=== PATIENT | male | born 1990 | race Caucasian/White ===

== ENCOUNTER 2021-09-14 17:55 | Emergency (ER) | payer BC, SELFPAY ==
--- NOTE | 2021-09-14 17:58 | ED.EAR ---
HPI - Ear Problem General Chief complaint: Ear Stated complaint: ear pain Time Seen by Provider: 09/14/21 17:58 Source: patient and RN notes reviewed History of Present Illness HPI Narrative: Patient is a 31-year-old male who presents the urgent care with complaints of bilateral ear pain that started today. Patient states that he has had post viral symptoms of a recent diagnosis of RSV. Patient states has been taking Mucinex for the mucus production. States that he used a sinus cleanse last night and believes that what started his ear pain. Patient states he is also obtained [id number] earache drops today and has been using them to the bilateral ears. Patient denies of any recent fevers. Denies of any shortness of breath or wheezing. No other acute complaints. No acute distress noted. Patient aware of the plan of care. Some parts of this dictation were generated by voice recognition software and may contain typographical and/or grammatical inaccuracies. Related Data Home Medications Medication Instructions Recorded Confirmed escitalopram oxalate 10 mg PO DAILY 09/14/21 09/14/21 methylphenidate HCl 27 mg PO DAILY 09/14/21 09/14/21 Allergies Allergy/AdvReac Type Severity Reaction Status Date / Time atomoxetine Allergy Unknown Other Verified 09/14/21 18:03 Review of Systems Review of Systems: CONSTITUTIONAL: Denies fever, chills, or sweats. EYES: Denies visual changes, redness, or discharge. ENT: Denies rhinorrhea, congestion, sore throat. Reports of bilateral otalgia CARDIOVASCULAR: Denies chest pain, palpitations, or edema. RESPIRATORY: Reports a productive cough without dyspnea GASTROINTESTINAL: Denies abdominal pain, nausea, vomiting, or diarrhea. GENITOURINARY: Denies dysuria or hematuria. SKIN: Denies rash or itching. MUSCULOSKELETAL: Denies back pain, joint pain, or myalgia. NEUROLOGIC: Denies headache, numbness, or weakness. All other systems reviewed are negative, except as documented in HPI. [facility] Family History Family History (System 04/28/20 @ 14:58 by Ellis Meza) Sibling Family history of thyroid disease Grandparent Family history of cardiovascular disease Cerebrovascular accident Family history of Alzheimer's disease Other Diabetes mellitus Family history of malignant neoplasm Social History Social History (System 04/28/20 @ 14:58 by Ellis Meza) Smoking status: Former smoker Smoking end date: 11/21/08 Alcohol intake: current Comments At the time of my signature, I reviewed and agree with the nursing past medical, surgical, social, and family history. There is no relevant family history pertinent to the patient complaint. Exam Narrative: GENERAL: This is a well-nourished, well-developed patient, in no apparent distress. HEAD: normocephalic, atraumatic. EYES: PERRL. Sclera clear/white. Vision is grossly intact. EARS: External ears normal, auditory canals clear and without drainage, moderate fluid noted behind bilateral TMs without otitis. TMs normal without perforation. Hearing grossly intact. NOSE: External nose normal with no obvious nasal discharge, nares without redness, no rhinorrhea. THROAT: Mucous membranes moist, posterior pharynx clear. Mild postnasal drainage NECK: Neck supple CARDIOVASCULAR: Regular rate and rhythm without murmurs, gallops, or rubs. RESPIRATORY: Clear to auscultation. Breath sounds equal bilaterally. No wheezes, rales, or rhonchi. SKIN: warm, intact with no suspicious lesions or rash, good texture and turgor. NEURO: awake, alert, and oriented to person, place and time. There were no obvious focal neurologic abnormalities. EXTREMITIES: No clubbing, cyanosis, or edema. Course Vital Signs Vital signs: Vital Signs Temperature 97.7 F 09/14/21 18:04 Pulse Rate 105 H 09/14/21 18:04 Respiratory Rate 16 09/14/21 18:04 Blood Pressure 124/80 09/14/21 18:04 Pulse Oximetry 100 09/14/21 18:04 Temperature 97.7 F 09/14/21 18:
[2021-09-14 18:04] VITALS: BP 124/80; PULSE 105; RESP 16; TEMP 36.5; O2SAT 100
[2021-09-14 18:06] VITALS: BP 124/80; PULSE 105; RESP 16; TEMP 36.5; O2SAT 100
== END 2021-09-14 18:13 | disposition home or self-care (01) ==
PROVIDERS: Emergency Provider Nurse Practitioner Family; PCP Emergency Medicine
DX: H92.03 Otalgia, bilateral (principal); Z87.891 Personal history of nicotine dependence
CPT/HCPCS: 99203; G0463

== ENCOUNTER 2021-11-23 12:58 | Emergency (ER) | payer BC, SELFPAY ==
[2021-11-23 13:00] VITALS: BP 161/83; PULSE 100; RESP 17; TEMP 37.1; O2SAT 99
[2021-11-23 14:50] VITALS: BP 128/79; PULSE 77; RESP 18; TEMP 36.7; O2SAT 96
--- NOTE | 2021-11-23 17:04 | PC.NURSE ---
pt left d/t wait time, pt asked to return if needed. pt agreeable to this
== END 2021-11-24 04:38 | disposition left against medical advice (07) ==
PROVIDERS: PCP Emergency Medicine
DX: R50.9 Fever, unspecified (principal)
CPT/HCPCS: 99199

== ENCOUNTER 2021-11-24 06:05 | Emergency (ER) | payer OTHER, SELFPAY ==
--- NOTE | ~2021-11-24 | XR_ITS ---
EXAMINATION: XR chest 2V DATE: 11/24/2021 06:35 INDICATION: Chest tightness. TECHNIQUE: Frontal and lateral views of the chest were obtained. COMPARISON: Chest 2 views 10/29/2017 FINDINGS: The chest demonstrates clear lungs without pneumonia, pleural effusion, or pneumothorax. Th e heart size is normal. IMPRESSION: 1. No acute cardiopulmonary disease. Reviewed, dictated and finalized at location A. NSKEEPER
--- NOTE | 2021-11-24 06:08 | ECG_ITS ---
Measurements Intervals [place] Rate: 93 P: 68 WV: 146 QRS: 19 QRSD: 97 T: 48 QT: 347 QTc: 432 Interpretive Statements SINUS RHYTHM BASELINE WANDER- II, III, AVF, V1-V3, V5-V6 NORMAL ECG Electronically Signed On 11-24-2021 6:27:38 [employer] by Chavez Cuenca D.O.
[2021-11-24 06:22] VITALS: BP 129/72; PULSE 96; RESP 18; TEMP 36.8; O2SAT 99
[2021-11-24 06:46] LABS: Basophils Percent Auto 0.4 % (0.2-1.2); Eosinophils Percent Auto 0.2 % (0-4.4); Hematocrit 43.6 % (42.0-52.0); Hemoglobin 15.5 g/dL (14.0-18.0); Immature Granulocyte Absolute 0.01 K/mm3 (0.00-0.031); Immature Granulocyte Percent A 0.2 % (0-0.5); Lymphocytes Absolute Auto 1.51 K/mm3 (0.9-3.2); Lymphocytes Percent Auto 32.3 % (18.3-44.2); Mean Corpuscular HGB Conc 35.6 g/dl (32-36); Mean Corpuscular Volume 84.5 fl (80-100); Mean Platelet Volume 10.2 fl (7.4-10.4); Monocytes Absolute Auto 0.9 K/mm3 (0.1-0.6); Monocytes Percent Auto 18.4 % (2.6-8.5); Neutrophils Absolute Auto 2.3 K/mm3 (1.3-6.7); Neutrophils Percent Auto 48.5 % (45.5-73.1); Platelet Count Result 257 k/mm3 (150-375); Red Blood Count 5.16 M/mm3 (4.6-6.20); Red Cell Distribution Width 12.9 % (11.5-14.5); White Blood Count 4.7 K/mm3 (4.5-10.0)
[2021-11-24 06:47] LABS: Alanine Aminotransferase 37 U/L (4-50); Albumin Level 4.8 g/dL (3.5-5.1); Alkaline Phosphatase 67 U/L (38-126); Anion Gap 13 mmol/L (8-16); Aspartate Amino Transferase 36 U/L (17-59); Bilirubin,Total 0.4 mg/dL (0.2-1.3); Blood Urea Nitrogen 9 mg/dL (9-20); Calcium 9.1 mg/dL (8.4-10.2); Carbon Dioxide 24 mmol/L (22-30); Chloride 94 mmol/L (98-107); Estimated CRCL calculation 93 ml/min; Estimated Glomerular Filt Rate > 60; Glucose 118 mg/dL (65-110); Lipase 84 U/L (23-300); Potassium 3.6 mmol/L (3.4-5.0); Sodium 131 mmol/L (137-145)
[2021-11-24 06:58] LABS: Troponin I < 0.012 ng/mL (0.000-0.034)
[2021-11-24] MEDS: ASPIRIN 81 MG CHEWABLE TABLET 324 MG PO (07:19)
[2021-11-24 07:32] LABS: Prothrombin Time 13.3 Seconds (11.1-14.7)
[2021-11-24 07:33] LABS: Partial Thromboplastin Time 37.5 SECONDS (22.3-36.8)
[2021-11-24 09:38] VITALS: BP 122/62; PULSE 82; RESP 18; TEMP 37; O2SAT 100
[2021-11-24 10:40] LABS: Troponin I < 0.012 ng/mL (0.000-0.034)
--- NOTE | 2021-11-24 11:18 | ED.GENADULT ---
HPI - General Adult General Chief complaint: Chest Pain Stated complaint: COVID +, chest pain/tightness Time Seen by Provider: 11/24/21 10:22 Source: patient Mode of arrival: ambulatory Limitations: no limitations History of Present Illness HPI narrative: Patient a 31-year-old male who was Covid positive presenting with chief complaint of cough, congestion and pain to the left side of his chest that presented yesterday. Patient denies any pain at this time and states that his generally present after coughing. Patient is unvaccinated. Patient reports that he has also had diarrhea. He denies nausea or vomiting. Patient reports that he called his primary care who instructed him to come to the emergency paramedics to be evaluated for bacterial pneumonia. Patient has not had persistent fevers. He reports that he is monitoring his oxygen levels and they have been normal at home. Patient states that he is concerned that his symptoms may worsen due to his unvaccinated status and so he wanted to be evaluated. Patient denies any chest pain or shortness of breath at this time. Related Data Home Medications Medication Instructions Recorded Confirmed methylphenidate HCl 27 mg PO DAILY 09/14/21 09/14/21 Allergies Allergy/AdvReac Type Severity Reaction Status Date / Time iohexol Allergy Itching Verified 11/24/21 10:22 [From contrast - CT, X-RAY] Review of Systems Review of Systems: CONSTITUTIONAL: Denies fever, chills, or sweats. EYES: Denies visual changes, redness, or discharge. ENT: Reports rhinorrhea, congestion, denies sore throat, or otalgia. CARDIOVASCULAR: Reports resolved chest pain, denies palpitations, or edema. RESPIRATORY: Reports cough denies dyspnea. GASTROINTESTINAL: Denies abdominal pain, nausea, vomiting, or diarrhea. GENITOURINARY: Denies dysuria or hematuria. SKIN: Denies rash or itching. MUSCULOSKELETAL: Denies back pain, joint pain, or myalgia. NEUROLOGIC: Denies headache, numbness, dizziness, or weakness. PSYCHIATRIC: Denies anxiety or depression. [facility] Family History Family History (System 04/28/20 @ 14:58 by Ellis Meza) Sibling Family history of thyroid disease Grandparent Family history of cardiovascular disease Cerebrovascular accident Family history of Alzheimer's disease Other Diabetes mellitus Family history of malignant neoplasm Social History Social History (System 04/28/20 @ 14:58 by Ellis Angulo Smoking status: Former smoker Smoking end date: 11/21/08 Alcohol intake: current Exam Narrative: GENERAL: Well-appearing, well-nourished, and in no acute distress. Nontoxic in appearance. Nondiaphoretic. HEAD: Normocephalic, atraumatic. EYES: PERRLA and EOMI. CHEST: Nontender to palpation. No tachypnea. No respiratory distress. HEART: Regular rate and rhythm. EXTREMITIES: Normal range of motion. No edema. SKIN: Warm, dry, no rash. NEURO: No focal deficits. Alert and oriented x3. PSYCH: Normal mood and affect. Course Vital Signs Vital signs: Vital Signs Temperature 98.3 F 11/24/21 06:22 Pulse Rate 96 11/24/21 06:22 Respiratory Rate 18 11/24/21 06:22 Blood Pressure 129/72 11/24/21 06:22 Pulse Oximetry 99 11/24/21 06:22 Temperature 98.6 F 11/24/21 09:38 Pulse Rate 82 11/24/21 09:38 Respiratory Rate 18 11/24/21 09:38 Blood Pressure 122/62 11/24/21 09:38 Pulse Oximetry 100 11/24/21 09:38 Medical Decision Making MDM Narrative Medical decision making narrative: Patient reported recurrent episodes of diarrhea. Patient offered IV fluids and declined. Patient does not display any signs of bacterial pneumonia. Patient reports he is able to keep down fluids at home. Patient reports that his food intake is lower but he is able to maintain fluids and will be starting smoothies and shakes. Patient declines Zofran and IV fluids. Patient has been instructed of his lab results and ER work-up. Patient has been instructed to return
[2021-11-24 11:47] VITALS: BP 112/79; PULSE 78; RESP 17; O2SAT 99
== END 2021-11-24 11:49 | disposition home or self-care (01) ==
PROVIDERS: Emergency Medicine; Emergency Provider Emergency Medicine; PCP Emergency Medicine
DX: U07.1 COVID-19 (principal); Z87.891 Personal history of nicotine dependence
CPT/HCPCS: 36415; 71046; 80053; 83690; 84484; 85025; 85610; 85730; 93005; 99284; A9270

== ENCOUNTER 2022-04-23 18:55 | Emergency (ER) | payer OTHER, SELFPAY ==
--- NOTE | ~2022-04-23 | XR_ITS ---
EXAMINATION: XR foot RT min 3V DATE: 04/23/2022 19:08 INDICATION: Right foot pain TECHNIQUE: Dorsoplantar, lateral, and oblique views of the right foot were obtained. COMPARISON: None. FINDINGS: There appears to be a nondisplaced oblique fracture at the lateral base of the fourth middl e phalanx. No definite additional fracture is identified. The joint spaces are normal. IMPRESSION: 1. Probable nondisplaced fracture at the lateral base of the fourth middle phalanx. Reviewed, dictated and finalized at location F. IMPRESSION: 1. Probable nondisplaced fracture at the lateral base of the fourth middle phal anx.
[2022-04-23 19:02] VITALS: BP 118/74; PULSE 77; RESP 20; TEMP 36.1
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
== END 2022-04-23 19:46 | disposition home or self-care (01) ==
PROVIDERS: Emergency Provider Nurse Practitioner Family
DX: S92.501A Displaced unspecified fracture of right lesser toe(s), initial encounter for closed fracture (principal); X58.XXXA Exposure to other specified factors, initial encounter; Z87.891 Personal history of nicotine dependence
CPT/HCPCS: 73630; 99214; G0463

== ENCOUNTER 2024-02-02 08:02 | Day surgery (SDC) | payer OTHER, SELFPAY ==
[2024-01-17 08:50] VITALS: BMI 22.3
[2024-02-02 09:41] VITALS: BP 120/74; PULSE 98; RESP 20; TEMP 36.7; O2SAT 100
[2024-02-02] MEDS: LACTATED RINGERS 1,000 ML 150 ML IV CONT (09:58)
--- NOTE | 2024-02-02 10:04 | P.HP_ITS ---
History of Present Illness History of Present Illness Consent: Risks, benefits, and alternatives have been discussed and questions answered. Patient agrees to proceed with procedure. Chief complaint: Gerd Narrative: Connor Everett is a 34 year old male presents for EGD. Patient has a history of heartburn and acid reflux. He underwent an endoscopy 5 years ago. The results are un available. Patient lost weight and stop taking his prescribed medications. Over the last year he has begun to have throat pain. Started taking Nexium in November however throat pain has failed to improve. He is referred for EGD because of ongoing throat pain prior history of acid reflux. Currently denies any heartburn. He has no dysphagia. He has had no bleeding. His weight remains stable. Review of Systems Review of Systems: Review of systems noncontributory. [facility] Family History Family History (System 04/28/20 @ 14:58 by Ellis Meza) Sibling Family history of thyroid disease Grandparent Family history of cardiovascular disease Cerebrovascular accident Family history of Alzheimer's disease Other Diabetes mellitus Family history of malignant neoplasm Social History Social History (System 04/28/20 @ 14:58 by Ellis Meza) Smoking status: Never smoker Smoking end date: 11/21/08 Alcohol intake: current Substance use type: does not use Living arrangements: with family Meds Home Medications and Allergies Home Medications Medication Instructions Recorded Confirmed Type esomeprazole magnesium 20 mg 20 mg PO DAILY 01/17/24 02/02/24 History capsule,delayed release (Nexium) lisdexamfetamine 60 mg capsule 60 mg PO DIRECTED 01/17/24 02/02/24 History (Vyvanse) Allergies Allergy/AdvReac Type Severity Reaction Status Date / Time iohexol Allergy Itching Verified 02/02/24 09:39 [From contrast - CT, X-RAY] Vital Signs Vital Signs - 24 hr 02/02/24 09:41 Temperature 98.0 F Pulse Rate 98 Respiratory Rate 20 Blood Pressure 120/74 Pulse Oximetry 100 Oxygen Delivery Room Air Exam Narrative: Physical exam reveals patient to be alert. Vital signs stable. HEENT exam is unremarkable. Patient is anicteric. Lungs are clear to auscultation and percussion without murmur or extra sounds. Abdomen bowel sounds are present soft nontender with no organomegaly. Digital external rectal exam is normal. Assessment and Plan Assessment and plan (1) GERD (gastroesophageal reflux disease): Code(s): K21.9 - Gastro-esophageal reflux disease without esophagitis Status: Acute Assessment and Plan: Patient with history of GE reflux now with throat pain poorly responsive to Nexium. Plan for EGD assess more thoroughly. Continued follow-up with established ENT advised. (2) Throat pain: Code(s): R07.0 - Pain in throat Status: Acute Assessment and Plan: Patient has throat pain poorly responsive to Nexium for which he is following with ENT.
--- NOTE | 2024-02-02 10:35 | WPDANESEPPF ---
Anes - Initial Pre Proc Eval Procedure: Operation Date: 02/02/24 10:30 Proposed Procedures p Esophagogastroduodenoscopy - Leonides Wisdom MD Date/Time: 02/02/24 10:35 Surgeon: Leonides Wisdom MD Pre Op Diagnosis: Gerd Patient Data Age: 34 Gender: M Height: 1.6 m Weight: 57.9 kg Last Vital Signs Temp 36.7 C 02/02/24 09:41 Pulse 98 02/02/24 09:41 Resp 20 02/02/24 09:41 BP 120/74 02/02/24 09:41 Pulse Ox 100 02/02/24 09:41 O2 Del Method Room Air 02/02/24 09:41 Allergies Allergy/AdvReac Type Severity Reaction Status Date / Time iohexol Allergy Itching Verified 02/02/24 09:39 [From contrast - CT, X-RAY] Home Medications Medication Instructions Recorded Confirmed Type esomeprazole magnesium 20 mg 20 mg PO DAILY 01/17/24 02/02/24 History capsule,delayed release (Nexium) lisdexamfetamine 60 mg capsule 60 mg PO DIRECTED 01/17/24 02/02/24 History (Vyvanse) Patient hx anesthesia problems: none Family hx anesthesia problems: none Results Review: All pre-operative results and documents have been reviewed as part of the pre-operative evaluation. [facility] Family History Family History Sibling Family history of thyroid disease Grandparent Family history of cardiovascular disease Cerebrovascular accident Family history of Alzheimer's disease Other Diabetes mellitus Family history of malignant neoplasm Social History Social History Smoking status: Never smoker Smoking end date: 11/21/08 Alcohol intake: current Substance use type: does not use Living arrangements: with family Anes - Eval Final PreProcedure Day of Procedure 02/02/24 10:35 Patient weight: normal Heart: regular rate and rhythm Lungs: clear to auscultation Airway: Mallampati scale class 1 Neurological: alert and oriented Last oral intake: >/= 8 hours ASA classification: II Emergent: no Anesthetic plan: proceed Anesthesia type and monitoring: general GIVS and standard monitoring Results Review: All pre-operative results and documents have been reviewed as part of the pre-operative evaluation. Informed Consent: The patient's anesthetic plan and its attendant risks and benefits were discussed with the patient/family/POA. Questions were solicited and answers provided to the satisfaction of the patient/family/POA.
[2024-02-02 11:22] VITALS: BP 136/98; PULSE 90; RESP 20; O2SAT 98
[2024-02-02 11:32] VITALS: BP 101/60; PULSE 79; RESP 18; O2SAT 96
--- NOTE | 2024-02-02 11:34 | WPDANESPN ---
Anes - Prog Note Post-Op Date/Time: 02/02/24 11:34 Cardiovascular status: normal Respiratory status: normal Airway patency: baseline Mental status: baseline Post-Op hydration status: normal Vital Signs: Last Vital Signs Temp 36.7 C 02/02/24 09:41 Pulse 90 02/02/24 11:22 Resp 20 02/02/24 11:22 BP 136/98 H 02/02/24 11:22 Pulse Ox 98 02/02/24 11:22 O2 Del Method Room Air 02/02/24 11:22 Pain Score (VAS): 0 I/O: Intake & Output 02/01/24 02/02/24 02/02/24 23:59 07:59 15:59 Intake Total 300 Balance 300 Patient Feedback: Patient satisfied with anesthetic care.
[2024-02-02 11:42] VITALS: BP 99/64; PULSE 76; RESP 18; O2SAT 96
== END 2024-02-02 11:49 | disposition home or self-care (01) ==
PROVIDERS: PCP Family Medicine; Visit Provider Internal Medicine Gastroenterology
PROC: 0DJ08ZZ Inspection of Upper Intestinal Tract, Via Natural or Artificial Opening Endoscopic (ICD-10-PCS; CPT 43235; principal; 2024-02-02 10:30)
DX: K21.9 Gastro-esophageal reflux disease without esophagitis (principal); R07.0 Pain in throat
CPT/HCPCS: 43239

== ENCOUNTER 2024-03-08 14:01 | Outpatient (RCR) | payer OTHER, SELFPAY ==
--- NOTE | 2024-03-08 14:46 | PTOPEVAL1 ---
Assessment and note entered by Blaine Kam Evaluation Information Assessment Status Evaluation Diagnosis left lower quadrant pain Onset 11/09/23 Subjective Information Pt. reports that he developed pain right before [place]. He describes pain on the left side of the belly button and can radiate down into the thigh. He reports that the pain is typically dull and throbbing, but can be sharp. He reports that he notices pain is more intense when he has been been bending forward. He states that pain is constant in the lower left abdomen. 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 he reports that sleep and standing relieve his pain. He reports that his goal for therapy is to decrease his pain. Reported Pain Level Pain Score 2: Self Report Assessment PT Clinical Summary Pt. demonstrates no movement that elicit pain with exception of standing trunk flexion that applies pressure to the lower abdomen. Talked with his doctor and doctor agreed that CT scan would be appropriate to rule out disruption of the abdominal wall or other pathology. We will hold treatment until pt. completes his CT scan. Plan of Care Treatment Frequency and Hold treatment until pt. completes his CT scan. Duration These treatments will address the objective and functional deficits as defined above. The patient will be advanced safely and appropriately in order for the patient to progress towards his/her prior level of function. Additional exercises will be introduced and as well as a comprehensive home exercise program upon discharge, if needed, ?to ensure carryover of functional gains achieved in the clinic. This treatment plan has been reviewed and agreement upon by the patient.
--- NOTE | 2024-04-30 08:34 | PTOPDC ---
Assessment and note entered by Denis Erazo, PT Evaluation Information Assessment Status Discharge - Pt Not Present Diagnosis left lower quadrant pain Onset 11/09/23 Subjective Information Patient stated that after following up with imaging he has decided to hold off on therapy at this time. Reports that he is still having occasional pain but it is sporadic. Assessment PT Clinical Summary Patient to be discharged for therapy at this time per request. I spoke with patient and he is feeling a little better overall but life is very bust with new baby arriving soon. He plans to return to therapy in near future if pain persists.
== END 2024-04-30 09:23 | disposition home or self-care (01) ==
LOC: ANHPT 14:01
PROVIDERS: PCP Family Medicine; Visit Provider Family Medicine
DX: R10.32 Left lower quadrant pain (principal); S39.011D Strain of muscle, fascia and tendon of abdomen, subsequent encounter
CPT/HCPCS: 97161

== ENCOUNTER 2024-03-13 16:14 | Outpatient (CLI) | payer OTHER, SELFPAY ==
--- NOTE | ~2024-03-13 | CT_ITS ---
Non-contrast CT scan of the Abdomen Clinical indication: Periumbilical pain Technique: 2.5 mm axial scans were obtained through the abdomen without intravenous or oral contrast . Dose reduction technique was used on this scan by utilizing automated exposure control and iterativ e reconstruction technique. The dose-length product (DLP) was 143.61 mGy-cm. Findings: Images through the lung bases reveal no abnormalities. There is no evidence of renal or ureteral calculi. The kidneys and the ureters are nondilated. The liver, spleen, pancreas, gallbladder, and adrenals appear normal. There is no aortic aneurysm. Visualized bowel loops are unremarkable. No ascites. Impression: No significant abnormality seen. Reviewed, dictated and finalized at location . Impression: No significant abnormality seen.
== END 2024-03-13 16:15 | disposition home or self-care (01) ==
PROVIDERS: PCP Family Medicine; Visit Provider Registered Nurse
DX: R10.9 Unspecified abdominal pain (principal)
CPT/HCPCS: 74150

== ENCOUNTER 2024-08-23 10:37 | Day surgery (SDC) | payer OTHER, SELFPAY ==
[2024-08-13 13:31] VITALS: BMI 24.1
[2024-08-13 15:08] VITALS: BMI 22.3
--- NOTE | 2024-08-23 06:57 | P.PNAN_ITS ---
Anes - Initial Pre Proc Eval Procedure: Operation Date: 08/23/24 12:30 Proposed Procedures p Diagnostic Colonoscopy - Leonides Wisdom MD Date/Time: 08/23/24 06:57 Surgeon: Leonides Wisdom MD Pre Op Diagnosis: BRBPR Patient Data Age: 34 Gender: M Height: 1.63 m Weight: 59 kg Allergies Allergy/AdvReac Type Severity Reaction Status Date / Time iohexol Allergy Itching Verified 08/23/24 11:26 [From contrast - CT, X-RAY] Home Medications Medication Instructions Recorded Confirmed Type lisdexamfetamine 60 mg capsule 60 mg PO DIRECTED 01/17/24 08/23/24 History (Vyvanse) Patient hx anesthesia problems: none Family hx anesthesia problems: none Results Review: All pre-operative results and documents have been reviewed as part of the pre- operative evaluation. [facility] Past Medical History Medical History (Updated 08/23/24 @ 11:38 by Leonides Wisdom MD) ADHD GERD (gastroesophageal reflux disease) Family History Family History Sibling Family history of thyroid disease Grandparent Family history of cardiovascular disease Cerebrovascular accident Family history of Alzheimer's disease Other Diabetes mellitus Family history of malignant neoplasm Social History Social History Smoking status: Never smoker Smoking end date: 11/21/08 Alcohol intake: never Substance use: never Substance use type: does not use Living arrangements: with family Spiritual care concerns: No Anes - Eval Final PreProcedure Day of Procedure 08/23/24 06:57 Patient weight: normal Heart: regular rate and rhythm Lungs: clear to auscultation and normal air movement Airway: Mallampati scale class II Neurological: alert and oriented Last oral intake: >/= 8 hours ASA classification: II Emergent: no Anesthetic plan: proceed Anesthesia type and monitoring: general GIVS and standard monitoring Results Review: All pre-operative results and documents have been reviewed as part of the pre- operative evaluation. Informed Consent: The patient's anesthetic plan and its attendant risks and benefits were discussed with the patient/family/POA. Questions were solicited and answers provided to the satisfaction of the patient/family/POA.
[2024-08-23 11:29] VITALS: BP 116/72; PULSE 89; RESP 18; TEMP 36.8; O2SAT 100
--- NOTE | 2024-08-23 11:36 | PM.HPGS ---
History of Present Illness History of Present Illness Consent: Risks, benefits, and alternatives have been discussed and questions answered. Patient agrees to proceed with procedure. Chief complaint: BRBPR Narrative: Connor Everett is a 34 year old male referred for colonoscopy. Patient has had 3 episodes where he has had bright red blood per rectum. Typically this is after a normal stool. He states the toilet bowl full term bright red when itself appears normal. He has had some mild rectal discomfort associated with this. Patient's family history is noncontributory. Patient denies any weight loss. Recent hemoglobin was normal. Review of Systems Review of Systems: All systems reviewed & are unremarkable except as noted in HPI and below PMFSH Past Medical History Medical History (Updated 08/23/24 @ 11:38 by Leonides Wisdom MD) ADHD GERD (gastroesophageal reflux disease) Family History Family History Sibling Family history of thyroid disease Grandparent Family history of cardiovascular disease Cerebrovascular accident Family history of Alzheimer's disease Other Diabetes mellitus Family history of malignant neoplasm Social History Social History Smoking status: Never smoker Smoking end date: 11/21/08 Alcohol intake: never Substance use: never Substance use type: does not use Living arrangements: with family Spiritual care concerns: No Meds Home Medications and Allergies Home Medications Medication Instructions Recorded Confirmed Type lisdexamfetamine 60 mg capsule 60 mg PO DIRECTED 01/17/24 08/23/24 History (Vyvanse) Allergies Allergy/AdvReac Type Severity Reaction Status Date / Time iohexol Allergy Itching Verified 08/23/24 11:26 [From contrast - CT, X-RAY] Vital Signs Vital Signs - 24 hr 08/23/24 11:29 Temperature 98.2 F Pulse Rate 89 Respiratory Rate 18 Blood Pressure 116/72 Pulse Oximetry 100 Oxygen Delivery Room Air Exam Narrative: Physical exam reveals patient to be alert. Vital signs stable. HEENT exam is unremarkable. Patient is anicteric. Lungs are clear to auscultation and percussion. Heart is without murmur or extra sounds. Abdomen bowel sounds are present soft nontender, with no hepatosplenomegaly. Digital external rectal exam is normal. Assessment and Plan Assessment and plan (1) BRBPR (bright red blood per rectum): Code(s): K62.5 - Hemorrhage of anus and rectum Status: Acute Assessment and Plan: Patient with rectal bleeding. This could be hemorrhoids. Colonoscopy is requested to exclude any additional pathology. High-fiber diet is advised. Further recommendations may be given after endoscopy.
[2024-08-23] MEDS: LACTATED RINGERS 1,000 ML 150 ML IV CONT (11:37)
[2024-08-23] MEDS: SIMETHICONE ORAL SUSPENSION 20 MG/0.3 ML 30 ML BOTTLE 0.6 ML IRRIGATION (12:43)
[2024-08-23 12:53] VITALS: BP 101/50; PULSE 93; RESP 16; O2SAT 98
[2024-08-23 13:03] VITALS: BP 90/42; PULSE 75; RESP 16; O2SAT 100
[2024-08-23 13:13] VITALS: BP 102/58; PULSE 66; RESP 18; O2SAT 100
--- NOTE | 2024-08-23 14:38 | WPDANESPN ---
Anes - Prog Note Post-Op Date/Time: 08/23/24 14:38 Cardiovascular status: normal Respiratory status: normal Airway patency: baseline Mental status: baseline Post-Op hydration status: normal Vital Signs: Last Vital Signs Temp 36.8 C 08/23/24 11:29 Pulse 66 08/23/24 13:13 Resp 18 08/23/24 13:13 BP 102/58 L 08/23/24 13:13 Pulse Ox 100 08/23/24 13:13 O2 Del Method Room Air 08/23/24 13:13 Pain Score (VAS): 0 I/O: Intake & Output 08/22/24 08/23/24 08/23/24 23:59 07:59 15:59 Intake Total 800 Balance 800 Post-procedural complaints: none Patient Feedback: Patient satisfied with anesthetic care. Other Findings: Patient vital signs back to baseline. Patient denies nausea and vomiting. Patient's pain under control. Patient OK for discharge.
== END 2024-08-23 13:24 | disposition home or self-care (01) ==
PROVIDERS: PCP Family Medicine; Visit Provider Internal Medicine Gastroenterology
PROC: 0DJD8ZZ Inspection of Lower Intestinal Tract, Via Natural or Artificial Opening Endoscopic (ICD-10-PCS; CPT 45378; principal; 2024-08-23 12:30)
DX: K62.5 Hemorrhage of anus and rectum (principal); K64.8 Other hemorrhoids
CPT/HCPCS: 45378

== ENCOUNTER 2024-09-17 18:53 | Emergency (ER) | payer OTHER, SELFPAY ==
[2024-09-17 19:23] VITALS: BP 145/92; PULSE 90; RESP 15; TEMP 36.7; O2SAT 99
--- NOTE | 2024-09-17 19:29 | ED.LOWEXIN ---
HPI - Extremity Injury (Lower) General Chief Complaint: Extremity Injury, Lower Stated Complaint: Injured Left Thigh Time Seen by Provider: 09/17/24 19:29 Source: patient Mode of arrival: ambulatory Limitations: no limitations History of Present Illness HPI Narrative: 34-year-old male presents with complaint of pain to left buttock radiating to left thigh and down to left knee. Pain started this morning when patient woke up. Denies injury. Reports pain has gotten progressively worse throughout the day. Feels a burning sensation to left inner thigh. Ambulatory with steady gait. Having intermittent muscle spasms to left leg. Denies back pain. No urinary or bowel symptoms. Denies numbness tingling. Has not taking any [id number] medication to treat symptoms. States pain is 3/10. All systems reviewed and negative except as noted above. Related Data Home Medications Medication Instructions Recorded Confirmed lisdexamfetamine 60 mg capsule 60 mg PO DIRECTED 01/17/24 08/23/24 (Vyvanse) Allergies Allergy/AdvReac Type Severity Reaction Status Date / Time iohexol Allergy Itching Verified 08/23/24 11:26 [From contrast - CT, X-RAY] Review of Systems Review of Systems: CONSTITUTIONAL: Denies fever, chills, or sweats. EYES: Denies visual changes, redness, or discharge. ENT: Denies rhinorrhea, congestion, sore throat, or otalgia. CARDIOVASCULAR: Denies chest pain, palpitations, or edema. RESPIRATORY: Denies cough or dyspnea. GASTROINTESTINAL: Denies abdominal pain, nausea, vomiting, or diarrhea. GENITOURINARY: Denies dysuria or hematuria. SKIN: Denies rash or itching. MUSCULOSKELETAL: Denies back pain. Reports pain to left buttock radiating to left thigh and around left knee with muscle spasming. NEUROLOGIC: Denies headache, numbness, or weakness. PSYCHIATRIC: Denies anxiety or depression. All other systems reviewed are negative, except as documented in HPI. [facility] Past Medical History Medical History (Updated 09/17/24 @ 19:45 by Viviana Echevarria NP) ADHD GERD (gastroesophageal reflux disease) Family History Family History Sibling Family history of thyroid disease Grandparent Family history of cardiovascular disease Cerebrovascular accident Family history of Alzheimer's disease Other Diabetes mellitus Family history of malignant neoplasm Social History Social History Smoking status: Never smoker Smoking end date: 11/21/08 Alcohol intake: never Substance use: never Substance use type: does not use Living arrangements: with family Spiritual care concerns: No Comments At time of signature, agree with nursing past medical, surgical, social and family history. There is no relevant family history pertinent to the presenting complaint. Exam Narrative: GENERAL: This is a well-nourished, well-developed patient, in no apparent distress. HEAD: normocephalic, atraumatic. EYES: PERRL. Sclera clear/white. Vision is grossly intact. EARS: External ears normal, auditory canals clear and without drainage, TMs normal without perforation. Hearing grossly intact. NOSE: External nose normal with no obvious nasal discharge, nares without redness, no rhinorrhea. THROAT: Mucous membranes moist, posterior pharynx clear. NECK: Neck supple, non-tender without lymphadenopathy, masses or thyromegaly. CARDIOVASCULAR: Regular rate and rhythm without murmurs, gallops, or rubs. RESPIRATORY: Clear to auscultation. Breath sounds equal bilaterally. No wheezes, rales, or rhonchi. SKIN: warm, Dry, intact with no suspicious lesions or rash, good texture and turgor. NEURO: awake, alert, and oriented to person, place and time. There were no obvious focal neurologic abnormalities. EXTREMITIES: Tenderness to left buttock, left inner thigh. Positive left straight leg raise. Lower extremity strength 5/5 bilaterally. There is no swelling or edema noted. BACK: Nontender without deformity. No CVA tenderness. Course Course Level of Care: Express Care Visit Vital Signs Vital signs: Vital Signs Temperature 36.7 C 09/17/24 19:23 Pulse Rate 90 09/17/24 19:23 Respiratory Rate 15 09/17/24 19:23 Blood Pressure 145/92 H 09/17/24 19:23 Pulse Oximetry 99 09/17/24 19:23 Oxygen Delivery Room Air 09/17/24 19:23 Temperature 36.7 C 09/17/24 19:23 Pulse Rate 90 09/17/24 19:23 Respiratory Rate 15 09/17/24 19:23 Blood Pressure 145/92 H 09/17/24 19:23 Pulse Oximetry 99 09/17/24 19:23 Oxygen Delivery Room Air 09/17/24 19:23 Reviewed MDM - Extremity Injury (Lower) MDM Narrative Medical decision making narrative: Will treat patient for sciatica due to patient's symptoms and exam findings. No neuro deficits at time of discharge. Discussed reasons with patient that he should go to ER such as numbness, weakness, leg swelling. Patient is aware of diagnosis, understands and agrees to treatment plan. Anticipatory guidance given. Patient agrees to follow-up as directed and is aware of reasons to seek care at the emergency department. Portions of this record may have been created with voice recognition software Discharge Plan Discharge Clinical Impression: Left sided sciatica Patient Disposition: Home, Self-Care Condition: Stable Instructions: Sciatica (ED), Lower Back Exercises (ED) Additional Instructions: Take medications as prescribed. Methocarbamol is a muscle relaxant and may cause drowsiness. Do not drive while taking it. Alternate between ice and heat. Do sciatica stretches daily. Follow-up with your doctor if pain is not improving. If you have severe pain, weakness, numbness, swelling to left lower extremity go to the ER. Prescriptions: New prednisone 20 mg tablet See Rx Instructions .ROUTE .COMPLEX Qty: 12 0RF Rx Instructions: Take 3 tablets today, then 2 tablets daily for 3 days then 1 tablet daily for 3 days. metronidazole 500 mg tablet 500 mg PO BID 7 Days Qty: 14 0RF ibuprofen 600 mg tablet 600 mg PO Q6H PRN (Reason: pain) Qty: 30 0RF No Action lisdexamfetamine [Vyvanse] 60 mg capsule 60 mg PO DIRECTED Follow-up/Referrals: Lc Gonzalez MD [Primary Care Provider] - Time of Disposition: 19:45
== END 2024-09-17 19:48 | disposition home or self-care (01) ==
PROVIDERS: Emergency Provider Nurse Practitioner Family; PCP Family Medicine
DX: M54.32 Sciatica, left side (principal); Z87.891 Personal history of nicotine dependence; F90.9 Attention-deficit hyperactivity disorder, unspecified type; K21.9 Gastro-esophageal reflux disease without esophagitis
CPT/HCPCS: 99213; G0463

== ENCOUNTER 2024-12-21 16:43 | Emergency (ER) | payer OTHER, SELFPAY ==
--- NOTE | ~2024-12-21 | XR_ITS ---
CHEST RADIOGRAPH, PA AND LATERAL CLINICAL HISTORY: dizziness . COMPARISON: 11/24/2021 TECHNIQUE: PA and lateral views of the chest. FINDINGS The cardiomediastinal silhouette is unremarkable. The lungs are clear. Visualized osseous structures and soft tissues are unremarkable. IMPRESSION: No focal infiltrate or effusion. Reviewed, dictated and finalized at location A. [employer]
[2024-12-21 16:45] VITALS: BP 140/73; PULSE 105; RESP 16; TEMP 36.6; O2SAT 100
--- OUTSIDE RECORDS SUMMARY | 2024-12-21 16:46 | XMS_ITS | Referral Summary ---
Author Organization [address] [facility] Address [address] [place] [id number] Care Team Providers Care Printed Circuit Board Assembly Repairer Name Role Phone Lc Gonzalez MD Primary Care Provider Encounters Date Type Department Care Team Description 12/14/2024 7:46 PM SUPERVISOR [employer] - 12/14/2024 11:59 PM SUPERVISOR [employer] [place] [address] Acute viral syndrome Discharge Disposition: Discharge to home or self care 12/14/2024 6:15 PM SUPERVISOR [employer] PROCESSING Office Visit [facility] at [address] [phone] Zara Gonzalez NP Acute viral syndrome (Primary Dx); Tenderness of neck from Last 3 Months Allergies No known active allergies Medications Vyvanse 60 mg capsule TAKE 1 CAPSULE BY MOUTH DAILY ONLY 6 OUT OF 7 DAYS PER WEEK 4 Active lidocaine viscous (XYLOCAINE) 2 % solution Apply 10 mL to the mouth or throat every 6 (six) hours as needed (sore throat) 100 mL 4 Active cyclobenzaprine (FLEXERIL) 10 mg tabletIndicatio ns:Tenderness of neck Take 1 tablet (10 mg total) by mouth 2 (two) times a day as needed for muscle spasms for up to 5 days 10 tablet 5 Active naproxen (ANAPROX,ALEVE) 220 mg tablet Take by mouth 2 (two) times a day with meals 12/14/19 25 Discontinu ed(Therapy completed) Active Problems Problem Noted Date Diagnosed Date Encounter for general adult medical examination w/o abnormal findings 02/12/2019 Abnormal weight loss 02/12/2019 Acute bronchitis 02/12/2019 Lumbago 02/12/2019 Gastro-esophageal reflux disease without esophag itis 02/12/2019 Generalized anxiety disorder 02/12/2019 Headache 02/12/2019 Hoarseness 02/12/2019 Myalgia 02/12/2019 Other muscle spasm 02/12/2019 Pain in left shoulder 02/12/2019 Social History Tobacco Use Types Packs/Day Years Used Date Smoking Tobacco: Never Smokeless Tobacco: Never Sex and Gender Information Value Date Recorded Sex Assigned at Not on file Legal Sex Male 12:33 PM SUPERVISOR [employer] PROCESSING Gender Identity Not on file Sexual Orientation Not on file Last Filed Vital Signs Vital Sign Reading Time Taken Comments Blood Pressure 108/66 12/14/2024 6:17 PM SUPERVISOR [employer] Pulse 85 12/14/2024 6:17 PM SUPERVISOR [employer] PROCESSING Temperature 37 ??C (98.6 ??F) 12/14/2024 6:17 PM SUPERVISOR [employer] PROCESSING Respiratory Rate 20 12/14/2024 6:17 PM SUPERVISOR [employer] PROCESSING Oxygen Saturation 98% 12/14/2024 6:17 PM SUPERVISOR [employer] PROCESSING Inhaled Oxygen Concentration - - Weight 59 kg (130 lb) 12/14/2024 6:17 PM SUPERVISOR [employer] PROCESSING Height 160 cm (5' 3 ) 02/08/2024 4:56 PM CDT Body Mass Index 23.03 02/08/2024 4:56 PM CDT Plan of Treatment Not on file Procedures Procedure Name Priority Date/Time Associated Diagnosis Comments THROAT CULTURE Routine 12/14/2024 7:46 PM SUPERVISOR [employer] Acute viral syndrome POCT MONONUCLEOSIS SCREEN Routine 12/14/2024 6:48 PM SUPERVISOR [employer] Acute viral syndrome POCT RAPID STREP Routine 12/14/2024 6:28 PM SUPERVISOR [employer] PROCESSING Acute viral syndrome from Last 3 Months Results * Throat culture Throat (12/14/2024 7:46 PM SUPERVISOR [employer] PROCESSING) Report Final Report: No growth of pathogens. Comment:Testing performed by : [facility], [address] [place] [address] Throat 12/14/2024 7:46 PM SUPERVISOR FISH PROCESSING 12/15/2024 1:54 AM SUPERVISOR FISH PROCESSING Narrative VALERIE FOWLER - 12/16/2024 7:11 AM SUPERVISOR [employer] PROCESSING Testing performed by [facility] ([phone]). Zara Gonzalez NP LAB MICROBIOLOGY - GENERAL ORD ERABLES Final Result VALERIE [address] Department [place] [address] * POCT mononucleosis screen (12/14/2024 6:48 PM SUPERVISOR [employer] PROCESSING) Heterophile, POC negative Blood spot 12/14/2024 6:48 PM SUPERVISOR [employer] PROCESSING Zara Gonzalez NP POINT OF CARE TEST ORDERABLES Final Result * POCT rapid strep A (12/14/2024 6:28 PM SUPERVISOR [employer] PROCESSING) Rapid Strep A, POC Negative Negative Swab 12/14/2024 6:28 PM SUPERVISOR FISH PROCESSING Zara Gonzalez NP POINT OF CARE TEST ORDERABLES Final Result from Last 3 Months Insurance [facility] CHOICE PLUS [facility] HMO/PPO Address: [facility] [address] [place] [address] [facility] CHOICE PLUS [facility] HMO/PPO [place]: [place] [address] Care Teams Printed Circuit Board Assembly Repairer Relationship Specialty Start Date End Date Lc Gonzalez MD [address] [place], [place] [id number] PCP - General Family Medicine 02/08/24
--- OUTSIDE RECORDS SUMMARY | 2024-12-21 16:46 | XMS_ITS | Clinical Summary ---
Author Organization [facility] Address [address] [place] [id number] Care Team Providers Care Mattress Specialist Name Role Phone Lc Gonzalez MD Primary Care Provider [phone] Allergies No known active allergies Medications Vyvanse [...] spasm 02/12/2019 Pain in left shoulder 02/12/2019 Encounters Date Type Department Care Team Description 12/14/2024 7:46 PM SYRUP FILTERER - 12/14/2024 11:59 PM SYRUP FILTERER Hospital Encounter [facility] [address] [place] [address] Acute viral syndrome Discharge Disposition: Discharge to home or self care 12/14/2024 6:15 PM SYRUP FILTERER Office Visit [facility] at [address] [phone] Zara Gonzalez NP Acute viral syndrome (Primary Dx); Tenderness of neck from Last 3 Months Medical History Medical History Date Comments ADHD (attention deficit hyperactivity disorder) Family History Medical History Relation Name Comments Diabetes Neg Hx Heart disease Neg Hx Stroke Neg Hx Social History Tobacco Use Types Packs/Day Years Used Date Smoking Tobacco: Never Smokeless Tobacco: Never Sex and Gender Information Value Date Recorded Sex Assigned at Not on file Legal Sex Male 12:33 PM SYRUP FILTERER Gender Identity Not on file Sexual Orientation Not on file Obstetrics History Last Filed Vital Signs Vital Sign Reading Time Taken Comments Blood Pressure 108/66 12/14/2024 6:17 PM SYRUP FILTERER Pulse 85 12/14/2024 6:17 PM SYRUP FILTERER Temperature 37 ??C (98.6 ??F) 12/14/2024 6:17 PM SYRUP FILTERER Respiratory Rate 20 12/14/2024 6:17 PM SYRUP FILTERER Oxygen Saturation 98% 12/14/2024 6:17 PM SYRUP FILTERER Inhaled Oxygen Concentration - - Weight 59 kg (130 lb) 12/14/2024 6:17 PM SYRUP FILTERER Height 160 cm (5' 3 ) 02/08/2024 4:56 PM CDT Body Mass Index 23.03 02/08/2024 4:56 PM CDT Plan of Treatment Health Maintenance Due Date Last Done Comments Depression Screening 1989 Hepatitis C Screening 1989 DTaP/Tdap/Td Vaccine (1 - Tdap) 01/24/2000 Varicella Vaccines (1 of 2 - 13+ 2-dose series) 2002 Hepatitis B Screening 2007 Regular Well Visit/Exam 18-64 2007 Influenza Vaccine (#1) 2024 HPV Vaccines Aged Out No longer eligi ble based on patient's age to complete this topic Pneumococcal vaccine <65 Aged Out No longer eligible based on patient's age to complete this topic Procedures Procedure Name Priority Date/Time Associated Diagnosis Comments THROAT CULTURE Routine 12/14/2024 7:46 PM SYRUP FILTERER Acute viral syndrome POCT MONONUCLEOSIS SCREEN Routine 12/14/2024 6:48 PM SYRUP FILTERER Acute viral syndrome POCT RAPID STREP Routine 12/14/2024 6:28 PM SYRUP FILTERER Acute viral syndrome from Last 3 Months Results * Throat culture Throat (12/14/2024 7:46 PM SYRUP FILTERER) Report Final Report: No growth of pathogens. Comment:Testing performed by : [facility], [address] [place]., [address] Throat 12/14/2024 7:46 PM SYRUP FILTERER 12/15/2024 1:54 AM SYRUP FILTERER Narrative VALERIE FOWLER - 12/16/2024 7:11 AM SYRUP FILTERER Testing performed by [facility]biology Laboratory ([phone]). us Zara Gonzalez NP LAB MICROBIOLOGY - GENERAL ORD ERABLES Final Result [facility] [address] Department [place] [address] * POCT mononucleosis screen (12/14/2024 6:48 PM SYRUP FILTERER) Heterophile, POC negative Blood spot 12/14/2024 6:48 PM SYRUP FILTERER us Zara Gonzalez NP POINT OF CARE TEST ORDERABLES Final Result * POCT rapid strep A (12/14/2024 6:28 PM SYRUP FILTERER) Rapid Strep A, POC Negative Negative Swab 12/14/2024 6:28 PM SYRUP FILTERER us Zara Gonzalez NP POINT OF CARE TEST ORDERABLES Final Result from Last 3 Months Insurance [facility] CHOICE PLUS [facility] HMO/PPO Address: [address] [place], [place] [id number] [facility] CHOICE PLUS [facility] HMO/PPO Address: [address] [address] [place] [address] Care Teams Mattress Specialist Relationship Specialty Start Date End Date Lc Gonzalez MD [address] [place] [address] PCP - General Family Medicine 02/08/24
--- OUTSIDE RECORDS SUMMARY | 2024-12-21 16:46 | XMS_ITS | Continuity of Care Document ---
Author Organization [facility] Address [address] [facility] [place] [address] Phone Care Team Providers Care Solution Engineer Name Role Phone Garth Rodriguez MD Unavailable Unavailable Allergies, Adverse Reactions, Alerts Substance Reaction Status Criticality No Known Allergies Active No Inform ation Medications Medication Instructions Dosage Effective Dates (start - stop) Status Comments Concerta 27 mg tablet,extended release take 1 tablet by oral route every day in the morning 27 MG - Active Lexapro 10 mg tablet take 1 tablet by or al route every day 10 MG - Active Procedures Procedure Date OFFICE/OUTPATIENT VISIT, EST OFFICE/OUTPATIENT VISIT, EST OFFICE/OUTPATIENT VISIT, EST PREV VISIT, EST, AGE 18-39 OFFICE/OUTPATIENT VISIT, EST OFFICE/OUTPATIENT VISIT, EST OFFICE/OUTPATIENT VISIT, EST PREV VISIT, EST, AGE 18-39 OFFICE/OUTPATIENT VISIT, EST OFFICE/OUTPATIENT VISIT, EST OFFICE/OUTPATIENT VISIT, EST OFFICE/OUTPATIENT VISIT, EST OFFICE/OUTPATIENT VISIT, EST OFFICE/OUTPATIENT VISIT, EST PREV VISIT, NEW, AGE 18-39 OFFICE/OUTPATIENT VISIT, NEW Advance Directives Directive Yes / No Effective Date File Name No Information Encounters Encounter Description Practice Location Reason(s) For Visit Diagnoses Date Provider Providers Copied on Encounter [facility], [address], [id number], [place] tel:[phone] [facility] No Information 1 Michael Parisi [address], [place], [place], [address] , [place]. [phone] OFFICE/OUTPA TIENT VISIT, [facility], [address], [address], [place] tel:[phone] [facility] anxiety1 (chief complaint) ADD (chief complaint) fatigue1 (chief complaint) HLP (chief complaint) Attention deficitFatigueGener alized Anxiety DisorderHyperlipide miaFamily history of endo, nutritional and metabolic diseases 1 Michael Parisi [address], [place], [place], [address] , [place]. tel:[phone] OFFICE/OUTPA TIENT VISIT, [facility], [address], [address], [place] tel:[phone] [facility] anxiety1 (chief complaint) ADD (chief complaint) Attention deficitGeneralized Anxiety DisorderFatigue 1 Michael Parisi [address], [address] , [place]. tel:[phone] OFFICE/OUTPA TIENT VISIT, [facility], [address], [address], [place] tel:[phone] [facility] fatigue1 (chief complaint) ADD (chief complaint) anxiety1 (chief complaint) weight gain1 (chief complaint) Attention deficitGeneralized Anxiety DisorderAbnormal weight gainFatigue 1 Michael Parisi [address], [place], [place], [address] , [place]. [phone] PREV VISIT, EST, AGE 18-39 [facility], [address] [place], [address], [place] tel:[phone] [facility] physical (chief complaint) Encounter for general adult medical exam w abnormal findingsAttention deficitFamily history of endo, nutritional and metabolic diseases 1 Michael Liang. [address], [place], [place], [address] , [place]. tel:[phone] Referring Provider: Aida [address], [place], [place], [address]. tel:[phone] OFFICE/OUTPA TIENT VISIT, EST [facility], [address], [place], [place], [address], [place] tel:[phone] [facility] urinary frequency1 (chief complaint) ADD (chief complaint) Attention deficitUrinary urgency 9 Michael Liang. [address], [place], [place], [address] , [place]. tel:[phone] Referring Provider: Aida [address], [place], [place], [address]. tel:[phone] OFFICE/OUTPA TIENT VISIT, EST [facility], [address], [place], [place], [address], [place] tel:[phone] [facility] ADD1 (chief complaint) Attention deficit 9 Michael Liang. [address], [place], [place], [address] , [place]. tel:[phone] Referring Provider: Aida [address], [place], [place], [address]. tel:[phone] PREV VISIT, EST, AGE 18-39 [facility], [address], [place], [place], [address], [place] [phone] [facility] Physical (chief complaint) Encntr for general adult medical exam w/o abnormal findings 9 Michael Liang. [address], [place], [place], [address] , [place]. tel:[phone] Referring Provider: Aida [address], [place], [place], [address]. tel:[phone] OFFICE/OUTPA TIENT VISIT, [facility], [address], [place], [place], [address], [place] tel:[phone] [facility] anxiety1 (chief complaint) shoulder pain1 (chief complaint) Pain in left shoulderGeneralized Anxiety Disorder 8 Michael Liang. [address], [place], [place], [address] , [place]. tel:[phone] Referring Provider: A[address], [place], [place], [address]. tel:[phone] OFFICE/OUTPA TIENT VISIT, [facility], [address], [place], [place], [address], [place] tel:[phone] [facility] twitching1 (chief complaint) anxiety1 (chief complaint) cough1 (chief complaint) FasciculationGenera lized Anxiety DisorderAcute bronchitis 8 Michael Liang. [address], [place], [place], [address] , [place]. tel:[phone] Referring Provider: A[address], [place], [place], [address]. tel:[phone] OFFICE/OUTPA TIENT VISIT, [facility], [address], [place], [place], [address], [place] tel:[phone] [facility] GERD1 (chief complaint) anxiety1 (chief complaint) myalgia1 (chief complaint) weight 1 (chief complaint) MyalgiaAbnormal weight lossGeneralized Anxiety DisorderFasciculati on 8 Michael Liang. [address], [place], [place], [address] , [place]. tel:[phone] Referring Provider: [address], [place], [place], [address]. tel:[phone] OFFICE/OUTPA TIENT VISIT, [facility], [address], [place], [place], [address], [place] tel:[phone] [facility] muscle twitch1 (chief complaint) neck pain1 (chief complaint) midback pain1 (chief complaint) anxiety1 (chief complaint) MyalgiaOther muscle spasmGeneralized Anxiety DisorderHoarseness Jan- 8 Michael Liang. [address], [place], [place], [address] , [place]. tel:[phone] Referring Provider: Garth Rodriguez, [address], [place], [place], [address]. tel:[phone] OFFICE/OUTPA TIENT VISIT, [facility], [address], [place], [place], [address], [place] tel:[phone] [facility] GERD1 (chief complaint) back pain1 (chief complaint) muscle spasm1 (chief complaint) anxiety1 (chief complaint) GERD w/o esophagitisGenerali zed Anxiety DisorderLumbagoOthe r muscle spasm Jan- 8 Michael Liang. [address], [place], [place], [address] , [place]. tel:[phone] Referring Provider: Aida [address], [place], [place], [address]. tel:[phone] OFFICE/OUTPA TIENT VISIT, [facility], [address], [place], [place], [address], [place] tel:[phone] [facility] headache1 (chief complaint) GERD1 (chief complaint) chest pain1 (chief complaint) Generalized Anxiety DisorderGERD w/o esophagitisHeadache Chest pain 8 Michael Liang. [address], [place], [place], [address] , [place]. tel:[phone] Referring Provider: Aida [address], [place], [place], [address]. tel:[phone] PREV VISIT, NEW, AGE 18-39 [facility], [address], [place], [place], [address], [place] tel:[phone] [facility] Physical (chief complaint) Encounter for general adult medical exam w abnormal findingsGERD w/o esophagitisChest painLumbago 0 8 Michael Liang. [address] [facility] [address], [place], [place], [address] , [place]. tel:[phone] Referring Provider: Garth Rodriguez [address] [facility] [address], [place], [place], [address]. tel:[phone] Family History Family Member Type Diagnosis Age At Onset Sister Problem (finding) Thyroid disorder Father Problem (finding) Unknown Mother Problem (finding) Alive and well Payers Payer name Insurance type Covered alliance party ID Authoriza tion(s) No Information Social History Type Description Quantity Date Captured Comments Sex Male Smoking Status No Information Chief Complaint And Reason For Visit No Information Plan Of Treatment Date Type Action Status Goal Special diet education compl eted Goal Special diet education compl eted Goal Special diet education compl eted Goal Special diet education compl eted Goal Special diet education compl eted Goal Special diet education compl eted Goal Special diet education compl eted Referral Ordered: SLEEP STUDY, ATTENDED ordered Referral Ordered: Rajesh Dunham -[facility] Phys[facility] : Orthopaedic Surgery (related to Pain in left shoulder) ordered Referral Referred To: Rajesh Dunham [address] [place] [address] DR LAMB B [address] [id number] Ordered: Referrals: Allopathic & Osteopathic Physicians : Orthopaedic Surgery. Rajesh Dunham. Evaluate and treat ordered Referral Ordered: US EXAM, EXTREMITY Left shoulder ordered Referral Ordered: Otolaryngology (related to Myalgia) ordered Referral Ordered: Neurology (related to Myalgia) ordered Referral Ordered: Referrals: Neurology. Evaluate and treat ordered Referral Ordered: Referrals: Otolaryngology. Evaluate and treat ordered Referral Ordered: MRI BRAIN W/O & W/DYE ordered Referral Ordered: MRI THORACIC SPINE W/O DYE ordered Referral Ordered: Chavez Cuenca (related to Chest pain) ordered Referral Referred To: Chavez Cuenca [address] [place], [place] [id number] Ordered: Referrals: Chavez Cuenca. Evaluate and treat ordered History Of Present Illness Encounter Date Complaint History Of Prese nt Illness anxiety1 Pt has chronic a nxiety and depression Pt doing ok with lexapro. Pt denies any suicidal or homicidal thought .Pt denies any crying spells fatigue1 Pt has chronic f atigue. pt had negative sleep study. pt denies any sob. Pt doing better with lexapro and concerta HLP Pt has mildly el evated LDL. His total cholesterol is ok. ADD Patient has ADD. Patient has inattentive type. Patient feels scatterbrained. Patient feel poor focus and difficulty completing tasks. Patient states that Concerta is helping with symptoms. Patient feels more focused. Pt feels more energy. Patient denies any headache, dry mouth, headache, chest pain. Patient denies any appetite loss. 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 Patient feels scatterbrained. Patient feel poor focus and difficulty completing tasks. Patient states that concerta is helping with symptoms. Patient feels more focused. Pt feels more energy. Patient denies any headache, dry mouth, headache, chest pain. Patient denies any appetite loss. fatigue Pt feels fatigue with poor focus and concentration and cloudy brain feeling. Pt denies any snoring .Pt denies any sob or chest pain anxiety Pt has chronic a nxiety and depression .Pt denies any suicidal or homicidal thought Pt denies any crying spells. pt wants to try anxiety meds again. ADD Patient has ADD. Patient has inattentive type. Patient feels scatterbrained. Patient feel poor focus and difficulty completing tasks. Patient states that concerta is helping with symptoms. Patient feels more focused. Pt feels more energy. Patient denies any headache, dry mouth, headache, chest pain. Patient denies any appetite loss. weight gain1 Pt has been gain ing weight Pt is sedentary and not very active physical Pt needs annual physical Pt has ADD, inattentive type Pt did well with concerta. Pt has not had it for more than one year. pt states that he is having difficulty with focus and concentration again, especially at work Pt wants to try concerta again. Pt denies any other complaints urinary frequency1 Pt has been f eeling mild urinary urgency and frequency since starting adderall. Pt states that he urinate more frequently with very mild urgency. Pt state that he urinate but he still feels that he is not completely emptying and he leaks his urine out a little frequently pt denies any dysuria, pt is drinking more fluid now due to dry mouth. Pt denies any flank pain. Pt denies any difficulty with urination. pt denies waking up at night with urination ADD Patient has ADD. Patient has inattentive type. Patient feels scatterbrained. Patient feel poor focus and difficulty completing tasks. Patient states that Adderall is helping with symptoms. Patient feels more focused. Pt feels more energy. Patient denies any headache, dry mouth, headache, chest pain. Patient denies any appetite loss. however, pt notices some urinary symptoms while on adderall. Pt still has urinary symptoms even when he is not taking adderall for several days ADD1 Patient has ADD. Patient has inattentive type. Patient feels scatterbrained. Patient feel poor focus and difficulty completing tasks. Patient states that Adderall is helping with symptoms. Patient feels more focused. Pt feels more energy. Patient denies any headache, dry mouth, headache, chest pain. Patient denies any appetite loss. Pt used to take adderall around two years ago which did well for him but he had issue with insomnia at night with adderall. Pt does not know what dose or what form of adderall he took. Pt stopped medication due to other medical issue at the time but he feels that he needs it again. pt also tried vyvanse which worked well but was too expensive Mar-20-2019 Physical Patient needs a new physical. Patient has been doing okay. Patient is to wean himself off Cymbalta and his mood is stable. Patient has chronic left shoulder pain. Patient denies any injury. Patient denies any neck pain. Patient denies any radiculopathy. Patient denies any left arm weakness. Patient complained of dull ache left shoulder worse with movement. Ultrasound showed rotator cuff muscle tendinosis and also AC joint hypertrophy. Patient denies any other complaints. anxiety1 Pt has mild anxi ety and depression. Pt states that his mood is getting better and he wants to get off cymbalta. Pt denies any suicidal or homicidal thought. pt denies any crying spells shoulder pain1 Pt c/o left shou lder pain for 1.5 years Pt denies any injury. Pt states that he has sharp pain whenever he tries to be active. Pt has full ROM but sometimes with pain left shoulder area. Pt denies any radiculopathy. Pt denies any neck pain anxiety1 Pt has mild anxi ety and depression Pt has been on cymbalta for 3 months pt wants to see if he can wean off cymbalta for now. Pt states that his mood is better now twitching1 Pt notices inter mittent muscle twitching around bicep, knee cap, back for 8 months Pt denies any numbness Pt denies any pain. Pt has twitching multiple times per day for unknown reason. Pt denies any tremor. 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 Pt states that the productive cough is gone for 2-3 weeks now but he has a constant dry cough and congestion midsternal area for 2-3 weeks now. pt feels that he is breathing through a sponge and he feels that he has to take deep breath to get enough air. Pt denies any calf pain or any recent travel or bedrest. Pt denies any postnasal drainage, sore throat, dysphagia, Pt denies any fever. GERD1 pt has mild GERD and he seen ENt and he is back on omeprazole again and his throat symptoms resolved. pt denies any hoarsensss anxiety1 Pt has chronic a nxiety and depression. Pt states that he feels better with cymbalta. he denies any suicidal or homicidal thought. Pt denies any crying spells. His mood is improving with cymbalta myalgia1 pt still has herlinda e muscle pain around T spine and paraspinal muscle. Pt had benign work up. Pt has mild twitching and he was told by neurology that he has benign fasciculation syndrome by neurology he had benign NCS with EMG both upper arm per patient by neurology Pt states that cymbalta also helped his pain. His CPK is ok weight 1 Pt lost over 10 pounds during last several months Pt does have GERD and went through some stress recently Pt is feeling better and he is eating better. Pt is not concerned about weight loss now. pt denies any GI bleeding muscle twitch1 Pt c/o diffuse m uscle twitch all over body around bilateral thigh, upper back and shoulder area for 3 weeks ago. Pt states that he feels very uncomfortable due to twitching. midback pain1 Pt has persisten t mid T spine pain and right paraspinal muscle pain near the scapular. Pt is seeing ortho and he had a injection to the scapular area but did not help. anxiety1 Pt has been feel ing depressed and anxious due to above. Pt denies any suicidal or homicidal thought. pt denies any cyring spells neck pain1 Pt c/o intermitt ent right side neck pain and when it occur for 4 weeks. s, he states that he canot speak due to the tightness feeling right side of neck. He feels throat tightening when his right side neck muscle pain and he feels that he feels that he has to speak less when it occurs. Pt denies any dysphagia. back pain1 pt states that h e has persistent mid spine pain for several months. Pt had benign MRi 6 months ago.. pt notices sharp pain constantly 7/10, Pt feels electricity shocking type of pain radiating from that particular spots to rest of neck and back. Pt states that since his last MRI, his midback pain has been worsen. Pt also is seeing orthopedic physician who gave him some scapular injection without any improvement. Pt has to rely on norco for pain relieve at present time. Pt mostly has pain on right side of midspine area. muscle spasm1 Pt has muscle sp asm and twitching around left leg, both scapular area for one week. Pt also c/o left leg pins and needles and also numbness left heel area for one week. Pt has diffuse dull headache for several months. Pt denies any vision change. Pt denies any nausea, vomiting. Pt denies any calf pain. Pt denies any recent travel or bedrest GERD1 Pt had EGD recen tlkasia and was told everything is ok. Pt states that dexilant did help with GERd and he does not really has GERD anymore. anxiety1 Pt has chronic a nxiety. Pt denies any depression or any suicidal thought. Pt denies any crying spells. Pt takes xanax PRn. Pt is extremely concerned about his condition. Pt thinks that there is something really wrong with him now headache1 Pt c/o sudden on set on right neck dullache, rightjaw pain, tingling feeling right side of face with right side throbbing headache last night Pt states that similar symptoms occured in the past. Pt had several migraine in the past but not very frequent. Pt denies any vision change Pt denies any weakness. Pt denies any radiculopathy or weakness. pt denies any slurred speech. Pt statse that his symptoms resolved now. Pt denies any toothache Pt denies any vision chagne or jaw pain now. pt denies any acute headache. Pt denies any nauea, rash, etc. Pt notices some tingling right side of face last night which ressolved also. pt states taht the whole symptoms lasted several mins GERD1 Pt has chronic G ERD with belching despite taking nexium. Pt still feels belching in AM and also burning feeling aroudn throat area. Pt stopped indomethacin already. Pt also has been having mid back pain. Pt has been takign diltiazem. Pt denies any nausa, vomiting. Pt states that he feels severely anxious about his symptoms. chest pain1 Pt has palpitati on and chest pain at night. Pt denies any exertional chest pain. Pt denies any acute pain. Pt states that he has appointemnt with Dr. Cuenca next week Physical Pt needs annual physical. Pt c/o chronic heartburn and belching and he does not feel maryellen he digested his food well. Pt sometimes he notices full lolis of food in his stools. Pt does not have any chronic diarrhea. pt just has some loose stool. Pt never seen blood in stool. Pt feels bloating Pt denies any abdominal pain. Pt had normal barium swallowing study. Pt has EGD scheduled in two weeks. Pt has been taking nexium and carafate for 6 weeks. Pt notices mild improvement with heartburn. He belchs all the time and he feels nauseated. Pt states that he feels chest pressure both left and right side and palpitation only at night when he lies down and rarely during the day. Pt denies any radiation to neck and arm. Pt denies any exertional chest pain pt denies any sob. Pt also c/o chronic bilateral T spine pain around the scapular area. pt feels constant pain. Pt had normal T spine MRi. Pt did responded to prednisone Instructions Date Instruction Additional Infor mo Special diet education Related t o Body mass index (BMI) 29.0-29.9, adult Increase physical activity Relat ed to Attention deficit Special diet education Related t o Body mass index (BMI) 30.0-30.9, adult Increase physical activity Relat ed to Attention deficit Weight management Related to Att ention deficit Special diet education Related t o Body mass index (BMI) 28.0-28.9, adult Increase activity. Related to En cntr for general adult medical exam w/o abnormal findings Special diet education Related t o Body mass index (BMI) 29.0-29.9, adult Special diet education Related t o Body mass index (BMI) 27.0-27.9, adult Increase physical activity Relat ed to Fasciculation Increase physical activity Relat ed to Myalgia Weight management Related to Kylah lgia Increase physical activity Relat ed to Myalgia Medications as instructed Relate d to Myalgia Special diet education Related t o Body mass index (BMI) 25.0-25.9, adult Medications as instructed Relate d to Myalgia Special diet education Related t o Body mass index (BMI) 27.0-27.9, adult Avoid provocative fo ods: citrus, alcohol, coffee, chocolate, mints. Related to GERD w/o esophagitis Eat smaller meals, n o eating three hours prior to bedtime. Related to GERD w/o esophagitis Elevate head of bed prior to sle ep. Related to GERD w/o esophagitis Increase physical activity Relat ed to Generalized Anxiety Disorder Prescribed Diet Educ ation/Lifestyle Education Regarding Diet Related to Dietary Surveillance and Counseling Prescribed Activity and Exercise Education Related to Dietary Surveillance and Counseling Increase physical activity Relat ed to Encounter for general adult medical exam w abnormal findings Weight management Related to Enc ounter for general adult medical exam w abnormal findings Prescribed Activity and Exercise Education Related to Dietary Surveillance and Counseling Prescribed Diet Educ ation/Lifestyle Education Regarding Diet Related to Dietary Surveillance and Counseling Assessments Type Assessment Date No Information
--- NOTE | 2024-12-21 16:50 | ECG_ITS ---
Test Date: 2024-12-21 16:53:37 Measurements Intervals [place] Rate: 94 P: 56 FL: 134 QRS: -11 QRSD: 94 T: 27 QT: 333 QTc: 416 Interpretive Statements SINUS RHYTHM POSSIBLE LEFT ATRIAL ENLARGEMENT BASELINE ARTIFACT- I, II, III, AVR, AVL, AVF, V1, V3-V6 BORDERLINE ECG No previous ECG available for comparison Electronically Signed On 12-22-2024 10:40:49 COST CONTROL ANALYST by Chavez Cuenca D.O.
--- NOTE | 2024-12-21 18:04 | ED_ITS ---
HPI - Arrhythmia/Palpitations General Chief Complaint: Arrhythmia/Palpitations <Sveta Colin PA-C - Last Filed: 12/22/24 20:39> Stated Complaint: palpitations and my naseem turned purple <Sveta Colin PA-C - Last Filed: 12/22/24 20:39> Time Seen by Provider: 12/21/24 18:04 <Sveta Colin PA-C - Last Filed: 12/22/24 20:39> Focused HPI: This is a 34 year old male that presents to the ER for weakness, sudden onset when doing work around the house. Reports increased heart rate, feeling dizzy, shortness of breath. Reports he went to the bathroom and noticed that his penis looked blue. Denies chest pain. GENERAL: Well-appearing, well-nourished, and in no acute distress. HEAD: Normocephalic, atraumatic. CHEST: Clear to auscultation. ?No respiratory distress. HEART: Regular rate and rhythm.? NEURO: ?Alert and oriented x3. Patient screened in triage and initial orders placed.? ?Additional care and disposition to be based upon?diagnostic testing and treatment. <Sveta Colin PA-C - Last Filed: 12/22/24 20:39> History of Present Illness HPI narrative: Agree with HPI. Looked down to go down steps and legs felt weak and he became clammy and unsteady. Prolonged feeling of this. No spinning dizziness. Symptoms have all resolved. He did do an EKG at home that showed sinus tachycardia. Has not had similar symptoms. No recent sinus congestion or cough. <Booker Horvath MD - Last Filed: 12/21/24 23:21> Related Data Home Medications: Home Medications ?Medication ?Instructions ?Recorded ?Confirmed ?Last Taken ?Type lisdexamfetamine 60 mg capsule 60 mg PO DIRECTED 01/17/24 08/23/24 08/13/24 History (Vyvkelley) <Sveta Colin PA-C - Last Filed: 12/22/24 20:39> Allergies/Adverse Reactions: Allergies Allergy/AdvReac Type Severity Reaction Status Date / Time iohexol (From contrast - CT, Allergy Itching Verified 12/21/24 16:44 X-RAY) <Sveta Colin PA-C - Last Filed: 12/22/24 20:39> Review of Systems 2 Review of Systems: All systems reviewed & are unremarkable except as noted in HPI and below <Booker Horvath MD - Last Filed: 12/21/24 23:21> Constitutional: Constitutional: Reports no additional constitutional complaints <Booker Horvath MD - Last Filed: 12/21/24 23:21> ENT: Reports system reviewed and no additional complaints, except as documented <Booker Horvath MD - Last Filed: 12/21/24 23:21> Cardiovascular: Cardiovascular: Reports no additional cardiovascular complaints <Booker Horvath MD - Last Filed: 12/21/24 23:21> Respiratory: Respiratory: Reports no additional respiratory complaints < Booker Horvath MD - Last Filed: 12/21/24 23:21> Neurologic: Reports system reviewed and no additional complaints, except as documented <Booker Horvath MD - Last Filed: 12/21/24 23:21> PMFSH Past Medical History Medical History: Medical History (Updated 12/22/24 @ 00:02 by Andrea Gamez) ADHD GERD (gastroesophageal reflux disease) <Sveta Colin PA-C - Last Filed: 12/22/24 20:39> Family History Family History: Family History Sibling Family history of thyroid disease Grandparent Family history of cardiovascular disease Cerebrovascular accident Family history of Alzheimer's disease Other Diabetes mellitus Family history of malignant neoplasm <Sveta Colin PA-C - Last Filed: 12/22/24 20:39> Social History Social History: Social History Smoking status: Never smoker Smoking end date: 11/21/08 Alcohol intake: never Substance use: never Substance use type: does not use Living arrangements: with family Spiritual care concerns: No <Sveta Colin PA-C - Last Filed: 12/22/24 20:39> Exam 2 Narrative: GENERAL: Well-appearing, well-nourished, and in no acute distress. HEAD: Normocephalic, atraumatic. EYES: PERRLA and EOMI. ENT: Mucous membranes moist. TMs normal bilaterally. CHEST: Clear to auscultation. No respiratory distress. HEART: Regular rate and rhythm. Normal peripheral pulses. EXTREMITIES: Normal range of motion. No edema. SKIN: Warm, dry, no rash. NEURO: Alert and oriented x3. PSYCH: Normal mood and affect. <Booker Horvath MD - Last Filed: 12/21/24 23:21> Course Course Emergency Course: Feels well at this time. Reviewed labs and EKG with patient. Appropriate for discharge home. May have some mild motion sickness. Recommend using Dramamine if symptoms recur. <Booker Horvath MD - Last Filed: 12/21/24 23:21> Vital Signs Vital signs: Vital Signs Temperature 97.9 F 12/21/24 16:45 Pulse Rate 105 H 12/21/24 16:45 Respiratory Rate 16 12/21/24 16:45 Blood Pressure 140/73 12/21/24 16:45 Pulse Oximetry 100 12/21/24 16:45 Oxygen Delivery Room Air 12/21/24 16:45 Temperature 97.9 F 12/21/24 16:45 Pulse Rate 76 12/21/24 23:29 Respiratory Rate 15 12/21/24 23:29 Blood Pressure 106/58 L 12/21/24 23:29 Pulse Oximetry 100 12/21/24 23:29 Oxygen Delivery Room Air 12/21/24 16:45 <Sveta Colin PA-C - Last Filed: 12/22/24 20:39> Vital Signs Temperature 97.9 F 12/21/24 16:45 Pulse Rate 105 H 12/21/24 16:45 Respiratory Rate 16 12/21/24 16:45 Blood Pressure 140/73 12/21/24 16:45 Pulse Oximetry 100 12/21/24 16:45 Oxygen Delivery Room Air 12/21/24 16:45 Temperature 97.9 F 12/21/24 16:45 Pulse Rate 76 12/21/24 23:29 Respiratory Rate 15 12/21/24 23:29 Blood Pressure 106/58 L 12/21/24 23:29 Pulse Oximetry 100 12/21/24 23:29 Oxygen Delivery Room Air 12/21/24 16:45 <Booker Horvath MD - Last Filed: 12/21/24 23:21> MDM - Arrhythmia/Palpitations Lab Data Result diagrams: 12/21/24 19:36 12/21/24 19:36 <Sveta Colin PA-C - Last Filed: 12/22/24 20:39> Labs: Lab Results 12/21/24 Range/Units 19:36 WBC 8.6 (4.5-10.0) K/mm3 RBC 5.17 (4.6-6.20) M/mm3 Hgb 15.7 (14.0-18.0) g/dL Hct 46.8 (42.0-52.0) % MCV 90.5 (80-100) fl MCH 30.4 (26-34) pg MCHC 33.5 (32-36) g/dl RDW 12.7 (11.5-14.5) % Plt Count 314 (150-375) k/mm3 MPV 10.1 (7.4-10.4) fl Immature Gran % (Auto) 0.2 (0-0.5) % Neut % (Auto) 69.5 (45.5-73.1) % Lymph % (Auto) 22.2 (18.3-44.2) % [place] % (Auto) 6.0 (2.6-8.5) % Eos % (Auto) 1.6 (0-4.4) % Baso % (Auto) 0.5 (0.2-1.2) % Lymph # (Auto) 1.90 (0.9-3.2) K/mm3 [place] # (Auto) 0.5 (0.1-0.6) K/mm3 Eos # (Auto) 0.1 (0-0.3) K/mm3 Baso # (Auto) 0.0 (0.0-0.1) K/mm3 Abs Immat Gran (auto) 0.02 (0.00-0.031) K/mm3 Absolute Neuts (auto) 6.0 (1.3-6.7) K/mm3 Absolute Nucleated RBC 0.000 (0.0-0.012) K/mm3 Nucleated RBC % 0.0 (0.0-0.2) % Sodium 143 (137-145) mmol/L Potassium 4.0 (3.4-5.0) mmol/L Chloride 99 (98-107) mmol/L Carbon Dioxide 29 (22-30) mmol/L Anion Gap 15 H (4-12) mmol/L BUN 13 (9-20) mg/dL Creatinine 0.69 L (0.7-1.3) mg/dL Estim Creat Clear Calc 103 ml/min Estimated GFR > 60 (59 - ) Glucose 98 (65-110) mg/dL Calcium 9.9 (8.4-10.2) mg/dL Magnesium 2.0 (1.6-2.3) mg/dL Total Bilirubin 0.6 (0.2-1.3) mg/dL AST 33 (17-59) U/L ALT 37 (6-50) U/L Alkaline Phosphatase 65 (38-126) U/L Total Protein 9.0 H (6.3-8.2) g/dL Albumin 5.1 (3.5-5.1) g/dL <Sveta Colin PA-C - Last Filed: 12/22/24 20:39> Lab Results 12/21/24 Range/Units 19:36 WBC 8.6 (4.5-10.0) K/mm3 RBC 5.17 (4.6-6.20) M/mm3 Hgb 15.7 (14.0-18.0) g/dL Hct 46.8 (42.0-52.0) % MCV 90.5 (80-100) fl MCH 30.4 (26-34) pg MCHC 33.5 (32-36) g/dl RDW 12.7 (11.5-14.5) % Plt Count 314 (150-375) k/mm3 MPV 10.1 (7.4-10.4) fl Immature Gran % (Auto) 0.2 (0-0.5) % Neut % (Auto) 69.5 (45.5-73.1) % Lymph % (Auto) 22.2 (18.3-44.2) % [place] % (Auto) 6.0 (2.6-8.5) % Eos % (Auto) 1.6 (0-4.4) % Baso % (Auto) 0.5 (0.2-1.2) % Lymph # (Auto) 1.90 (0.9-3.2) K/mm3 [place] # (Auto) 0.5 (0.1-0.6) K/mm3 Eos # (Auto) 0.1 (0-0.3) K/mm3 Baso # (Auto) 0.0 (0.0-0.1) K/mm3 Abs Immat Gran (auto) 0.02 (0.00-0.031) K/mm3 Absolute Neuts (auto) 6.0 (1.3-6.7) K/mm3 Absolute Nucleated RBC 0.000 (0.0-0.012) K/mm3 Nucleated RBC % 0.0 (0.0-0.2) % Sodium 143 (137-145) mmol/L Potassium 4.0 (3.4-5.0) mmol/L Chloride 99 (98-107) mmol/L Carbon Dioxide 29 (22-30) mmol/L Anion Gap 15 H (4-12) mmol/L BUN 13 (9-20) mg/dL Creatinine 0.69 L (0.7-1.3) mg/dL Estim Creat Clear Calc 103 ml/min Estimated GFR > 60 (59 - ) Glucose 98 (65-110) mg/dL Calcium 9.9 (8.4-10.2) mg/dL Magnesium 2.0 (1.6-2.3) mg/dL Total Bilirubin 0.6 (0.2-1.3) mg/dL AST 33 (17-59) U/L ALT 37 (6-50) U/L Alkaline Phosphatase 65 (38-126) U/L Total Protein 9.0 H (6.3-8.2) g/dL Albumin 5.1 (3.5-5.1) g/dL <Booker Horvath MD - Last Filed: 12/21/24 23:21> Imaging Data Radiologist's impression: ITS Impressions Chest X-Ray 12/21/24 18:14 IMPRESSION: No focal infiltrate or effusion. <Sveta Colin PA-C - Last Filed: 12/22/24 20:39> Critical Care Time Critical Care Time Critical Care Time: No <Sveta Colin PA-C - Last Filed: 12/22/24 20:39> Discharge Plan Discharge Clinical Impression: Dizziness <Sveta Colin PA-C - Last Filed: 12/22/24 20:39> Patient Disposition: Home, Self-Care <LETI Yoo Last Filed: 12/22/24 20:39> Condition: Stable <Sveta Colin PA-C - Last Filed: 12/22/24 20:39> Instructions: Dizziness (ED) <LETI Yoo Last Filed: 12/22/24 20:39> Additional Instructions: Your symptoms may be related to work some motion sickness. If it reoccurs you may tried some [id number] Dramamine. Return the ER if you have weakness of an arm or leg, you lose consciousness, or you have additional concerns. <Sveta Colin PA-C - Last Filed: 12/22/24 20:39> Patient Language: Lao <Sveta Colin PA-C - Last Filed: 12/22/24 20:39> Prescriptions: No Action prednisone 20 mg tablet See Rx Instructions .ROUTE .COMPLEX Qty: 12 0RF Rx Instructions: Take 3 tablets today, then 2 tablets daily for 3 days then 1 tablet daily for 3 days. metronidazole 500 mg tablet 500 mg PO BID 7 Days Qty: 14 0RF ibuprofen 600 mg tablet 600 mg PO Q6H PRN (Reason: pain) Qty: 30 0RF lisdexamfetamine [Vyvanse] 60 mg capsule 60 mg PO DIRECTED <Sveta Colin PA-C - Last Filed: 12/22/24 20:39> Follow-up/Referrals: Lc Gonzalez MD [Primary Care Provider] - 1 Week <LETI Yoo Last Filed: 12/22/24 20:39>
[2024-12-21 19:43] LABS: Basophils Percent Auto 0.5 % (0.2-1.2); Eosinophils Absolute Auto 0.1 K/mm3 (0-0.3); Eosinophils Percent Auto 1.6 % (0-4.4); Hematocrit 46.8 % (42.0-52.0); Hemoglobin 15.7 g/dL (14.0-18.0); Immature Granulocyte Absolute 0.02 K/mm3 (0.00-0.031); Immature Granulocyte Percent A 0.2 % (0-0.5); Lymphocytes Percent Auto 22.2 % (18.3-44.2); Mean Corpuscular HGB Conc 33.5 g/dl (32-36); Mean Corpuscular Hemoglobin 30.4 pg (26-34); Mean Corpuscular Volume 90.5 fl (80-100); Mean Platelet Volume 10.1 fl (7.4-10.4); Monocytes Absolute Auto 0.5 K/mm3 (0.1-0.6); Neutrophils Percent Auto 69.5 % (45.5-73.1); Platelet Count Result 314 k/mm3 (150-375); Red Blood Count 5.17 M/mm3 (4.6-6.20); Red Cell Distribution Width 12.7 % (11.5-14.5); White Blood Count 8.6 K/mm3 (4.5-10.0)
[2024-12-21 19:53] LABS: Alanine Aminotransferase 37 U/L (6-50); Albumin Level 5.1 g/dL (3.5-5.1); Alkaline Phosphatase 65 U/L (38-126); Anion Gap 15 mmol/L (4-12); Aspartate Amino Transferase 33 U/L (17-59); Bilirubin,Total 0.6 mg/dL (0.2-1.3); Blood Urea Nitrogen 13 mg/dL (9-20); Calcium 9.9 mg/dL (8.4-10.2); Carbon Dioxide 29 mmol/L (22-30); Chloride 99 mmol/L (98-107); Estimated CRCL calculation 103 ml/min; Estimated Glomerular Filt Rate > 60; Glucose 98 mg/dL (65-110); Sodium 143 mmol/L (137-145)
[2024-12-21 22:20] VITALS: BP 112/76; PULSE 90; RESP 15; O2SAT 99
--- OUTSIDE RECORDS SUMMARY | 2024-12-21 22:22 | XMS_ITS | Clinical Summary ---
Author Organization [facility] Address [address] [place] [id number] Care Team Providers Care Director Account Management Name Role Phone Lc Gonzalez MD Primary Care Provider [phone] Allergies No known active allergies Medications Vyvanse [...] Department Care Team Description 12/14/2024 7:46 PM TEXTILE SCRAP SALVAGER - 12/14/2024 11:59 PM TEXTILE SCRAP SALVAGER Hospital Encounter [facility] [address] [place] [address] Acute viral syndrome Discharge Disposition: Discharge to home or self care 12/14/2024 6:15 PM TEXTILE SCRAP SALVAGER Office Visit [facility] [address] [phone] Zara Gonzalez NP Acute viral [...] on file Legal Sex Male 12:33 PM TEXTILE SCRAP SALVAGER Gender Identity Not on file Sexual Orientation Not on file Obstetrics History Last Filed Vital Signs Vital Sign Reading Time Taken Comments Blood Pressure 108/66 12/14/2024 6:17 PM TEXTILE SCRAP SALVAGER Pulse 85 12/14/2024 6:17 PM TEXTILE SCRAP SALVAGER Temperature 37 ??C (98.6 ??F) 12/14/2024 6:17 PM TEXTILE SCRAP SALVAGER Respiratory Rate 20 12/14/2024 6:17 PM TEXTILE SCRAP SALVAGER Oxygen Saturation 98% 12/14/2024 6:17 PM TEXTILE SCRAP SALVAGER Inhaled Oxygen Concentration - - Weight 59 kg (130 lb) 12/14/2024 6:17 PM TEXTILE SCRAP SALVAGER Height 160 cm (5' 3 ) 02/08/2024 [...] Comments THROAT CULTURE Routine 12/14/2024 7:46 PM TEXTILE SCRAP SALVAGER Acute viral syndrome POCT MONONUCLEOSIS SCREEN Routine 12/14/2024 6:48 PM TEXTILE SCRAP SALVAGER Acute viral syndrome POCT RAPID STREP Routine 12/14/2024 6:28 PM TEXTILE SCRAP SALVAGER Acute viral syndrome from Last 3 Months Results * Throat culture Throat (12/14/2024 7:46 PM TEXTILE SCRAP SALVAGER) Report Final Report: No growth of pathogens. Comment:Testing performed by : [facility], [address] [place]., [address] Throat 12/14/2024 7:46 PM TEXTILE SCRAP SALVAGER 12/15/2024 1:54 AM TEXTILE SCRAP SALVAGER Narrative VALERIE FOWLER - 12/16/2024 7:11 AM TEXTILE SCRAP SALVAGER Testing performed by [facility] ([phone]). us Zara Gonzalez NP LAB MICROBIOLOGY - GENERAL ORD ERABLES Final Result [facility] [id number] Department [place] [address] * POCT mononucleosis screen (12/14/2024 6:48 PM TEXTILE SCRAP SALVAGER) Heterophile, POC negative Blood spot 12/14/2024 6:48 PM TEXTILE SCRAP SALVAGER us Zara Gonzalez NP POINT OF CARE TEST ORDERABLES Final Result * POCT rapid strep A (12/14/2024 6:28 PM TEXTILE SCRAP SALVAGER) Rapid Strep A, POC Negative Negative Swab 12/14/2024 6:28 PM TEXTILE SCRAP SALVAGER us Zara Gonzalez NP POINT OF CARE TEST ORDERABLES Final Result from Last 3 Months Insurance [facility] Care Teams Director Account Management Relationship Specialty Start Date End Date Lc Gonzalez MD [address] [place] [address] PCP - General Family Medicine 02/08/24
--- OUTSIDE RECORDS SUMMARY | 2024-12-21 22:22 | XMS_ITS | Referral Summary ---
Author Organization [address] [facility] Address [address] [place] [phone] Care Team Providers Care [place] St[place] Name Role Phone Lc Gonzalez MD Primary Care Provider Encounters Date Type Department Care Team Description 12/14/2024 7:46 PM PRODUCTION OPERATIONS MANAGER - 12/14/2024 11:59 PM PRODUCTION OPERATIONS MANAGER [place] [address] Acute viral syndrome Discharge Disposition: Discharge to home or self care 12/14/2024 6:15 PM PRODUCTION OPERATIONS MANAGER Office Visit [facility] at [address] [phone] Zara Gonzalez NP Acute viral [...] on file Legal Sex Male 12:33 PM PRODUCTION OPERATIONS MANAGER Gender Identity Not on file Sexual Orientation Not on file Last Filed Vital Signs Vital Sign Reading Time Taken Comments Blood Pressure 108/66 12/14/2024 6:17 PM PRODUCTION OPERATIONS MANAGER Pulse 85 12/14/2024 6:17 PM PRODUCTION OPERATIONS MANAGER Temperature 37 ??C (98.6 ??F) 12/14/2024 6:17 PM PRODUCTION OPERATIONS MANAGER Respiratory Rate 20 12/14/2024 6:17 PM PRODUCTION OPERATIONS MANAGER Oxygen Saturation 98% 12/14/2024 6:17 PM PRODUCTION OPERATIONS MANAGER Inhaled Oxygen Concentration - - Weight 59 kg (130 lb) 12/14/2024 6:17 PM PRODUCTION OPERATIONS MANAGER Height 160 cm (5' 3 ) 02/08/2024 4:56 PM CDT Body Mass Index 23.03 02/08/2024 4:56 PM CDT Plan of Treatment Not on file Procedures Procedure Name Priority Date/Time Associated Diagnosis Comments THROAT CULTURE Routine 12/14/2024 7:46 PM PRODUCTION OPERATIONS MANAGER Acute viral syndrome POCT MONONUCLEOSIS SCREEN Routine 12/14/2024 6:48 PM PRODUCTION OPERATIONS MANAGER Acute viral syndrome POCT RAPID STREP Routine 12/14/2024 6:28 PM PRODUCTION OPERATIONS MANAGER Acute viral syndrome from Last 3 Months Results * Throat culture Throat (12/14/2024 7:46 PM PRODUCTION OPERATIONS MANAGER) Report Final Report: No growth of pathogens. Comment:Testing performed by : [facility], [address] [facility] [place] [address] Throat 12/14/2024 7:46 PM PRODUCTION OPERATIONS MANAGER 12/15/2024 1:54 AM PRODUCTION OPERATIONS MANAGER Narrative VALERIE FOWLER - 12/16/2024 7:11 AM PRODUCTION OPERATIONS MANAGER Testing performed by [facility] ([phone]). Zara Gonzalez NP LAB MICROBIOLOGY - GENERAL ORD ERABLES Final Result [facility] [address] [place] [address] * POCT mononucleosis screen (12/14/2024 6:48 PM PRODUCTION OPERATIONS MANAGER) Heterophile, POC negative Blood spot 12/14/2024 6:48 PM PRODUCTION OPERATIONS MANAGER Zara Gonzalez NP POINT OF CARE TEST ORDERABLES Final Result * POCT rapid strep A (12/14/2024 6:28 PM PRODUCTION OPERATIONS MANAGER) Rapid Strep A, POC Negative Negative Swab 12/14/2024 6:28 PM PRODUCTION OPERATIONS MANAGER Zara Gonzalez NP POINT OF CARE TEST ORDERABLES Final Result from Last 3 Months Insurance [facility] PLUS [facility] PL[facility] Care Teams [place] Stocker Relationship Specialty Start Date End Date Lc Gonzalez MD [address] [place], [place] [id number] PCP - General Family Medicine 02/08/24
--- OUTSIDE RECORDS SUMMARY | 2024-12-21 22:22 | XMS_ITS | Continuity of Care Document ---
Author Organization [facility] Address [address] [place] [address] Phone Care Team Providers Care Assembler Finger Buffs Name Role Phone Garth Rodriguez MD Unavailable [...] Diagnoses Date Provider Providers Copied on Encounter [facility], [address] [place], [address], [place] tel:[phone] [facility] No Information 1 Michael Parisi [address], [place], [place], [address] , [place]. [phone] OFFICE/OUTPA TIENT VISIT, [facility], [address] [place], [address], [place] tel:[phone] [facility] anxiety1 (chief complaint) ADD (chief complaint) fatigue1 (chief complaint) HLP (chief complaint) Attention deficitFatigueGener alized Anxiety DisorderHyperlipide miaFamily history of endo, nutritional and metabolic diseases 1 Michael Parisi [address], [place], [place], [address] , [place]. tel:[phone] OFFICE/OUTPA TIENT VISIT, [facility], [address] [place], [address], [place] tel:[phone] [facility] anxiety1 (chief complaint) ADD (chief complaint) Attention deficitGeneralized Anxiety DisorderFatigue 1 Michael Parisi [address] [place], [address] , [place]. tel:[phone] OFFICE/OUTPA TIENT VISIT, [facility], [address] [place], [address], [place] tel:[phone] [facility] fatigue1 (chief complaint) ADD (chief complaint) anxiety1 (chief complaint) weight gain1 (chief complaint) Attention deficitGeneralized Anxiety DisorderAbnormal weight gainFatigue 1 Michael Parisi [address], [place], [place], [address] , [place]. [phone] PREV VISIT, EST, AGE 18-39 [facility], [address] [place], [address], [place] tel:[phone] [facility] physical (chief complaint) Encounter for general adult medical exam w abnormal findingsAttention deficitFamily history of endo, nutritional and metabolic diseases 1 Michael Liang. [address], [place], [place], [address] , [place]. tel:[phone] Referring Provider: Aida [address], [place], [place], [address]. tel:[phone] OFFICE/OUTPA TIENT VISIT, EST [facility], [address], [place], [place], [address], [place] tel:[phone] [facility] urinary frequency1 (chief complaint) ADD (chief complaint) Attention deficitUrinary urgency 9 Michael Liang. [address], [place], [place], [address] , [place]. tel:[phone] Referring Provider: Aida [address], [place], [place], [address]. tel:[phone] OFFICE/OUTPA TIENT VISIT, EST [facility], [address], [place], [place], [address], [place] tel:[phone] [facility] ADD1 (chief complaint) Attention deficit 9 Michael Liang. [address], [place], [place], [address] , [place]. tel:[phone] Referring Provider: Aida [address], [place], [place], [address]. tel:[phone] PREV VISIT, EST, AGE 18-39 [facility], [address], [place], [place], [address], [place] [phone] [facility] Physical (chief complaint) Encntr for general adult medical exam w/o abnormal findings 9 Michael Liang. [address], [place], [place], [address] , [place]. tel:[phone] Referring Provider: Aida Conway [address], [place], [place], [address]. tel:[phone] OFFICE/OUTPA TIENT VISIT, [facility], [address], [place], [place], [address], [place] tel:[phone] [facility] anxiety1 (chief complaint) shoulder pain1 (chief complaint) Pain in left shoulderGeneralized Anxiety Disorder 8 Michael Liang. [address], [place], [place], [address] , [place]. tel:[phone] Referring Provider: A[address], [place], [place], [address]. tel:[phone] OFFICE/OUTPA TIENT VISIT, [facility], [address], [place], [place], [address], [place] tel:[phone] [facility] twitching1 (chief complaint) anxiety1 (chief complaint) cough1 (chief complaint) FasciculationGenera lized Anxiety DisorderAcute bronchitis 8 Michael Liang. [address], [place], [place], [address] , [place]. tel:[phone] Referring Provider: [address], [place], [place], [address]. tel:[phone] OFFICE/OUTPA TIENT VISIT, [facility], [address], [place], [place], [address], [place] tel:[phone] [facility] GERD1 (chief complaint) anxiety1 (chief complaint) myalgia1 (chief complaint) weight 1 (chief complaint) MyalgiaAbnormal weight lossGeneralized Anxiety DisorderFasciculati on 8 Michael Liang. [address], [place], [place], [address] , [place]. tel:[phone] Referring Provider: A[address], [place], [place], [address]. tel:[phone] OFFICE/OUTPA TIENT VISIT, [facility], [address], [place], [place], [address], [place] tel:[phone] [facility] muscle twitch1 (chief complaint) neck pain1 (chief complaint) midback pain1 (chief complaint) anxiety1 (chief complaint) MyalgiaOther muscle spasmGeneralized Anxiety DisorderHoarseness Jan- 8 Michael Liang. [address], [place], [place], [address] , [place]. tel:[phone] Referring Provider: Garth Rodriguez, [address], [place], [place], [address]. tel:[phone] OFFICE/OUTPA TIENT VISIT, [facility], [address], [place], [place], [address], [place] tel:[phone] [facility] GERD1 (chief complaint) back pain1 (chief complaint) muscle spasm1 (chief complaint) anxiety1 (chief complaint) GERD w/o esophagitisGenerali zed Anxiety DisorderLumbagoOthe r muscle spasm Jan- 8 Michael Liang. [address], [place], [place], [address] , [place]. tel:[phone] Referring Provider: Aida [address], [place], [place], [address]. tel:[phone] OFFICE/OUTPA TIENT VISIT, [facility], [address], [place], [place], [address], [place] tel:[phone] [facility] headache1 (chief complaint) GERD1 (chief complaint) chest pain1 (chief complaint) Generalized Anxiety DisorderGERD w/o esophagitisHeadache Chest pain 8 Michael Liang. [address], [place], [place], [address] , [place]. tel:[phone] Referring Provider: Aida [address], [place], [place], [address]. tel:[phone] PREV VISIT, NEW, AGE 18-39 [facility], [address], [place], [place], [address], [place] tel:[phone] [facility] Physical (chief complaint) Encounter for general adult medical exam w abnormal findingsGERD w/o esophagitisChest painLumbago 0 8 Michael Liang. [address] [facility] [address], [place], [place], [address] , [place]. tel:[phone] Referring Provider: Garth Rodriguez [address] [facility] [address], [place], [place], [address]. tel:[phone] Family History Family Member Type Diagnosis Age At Onset Sister Problem (finding) Thyroid disorder Father Problem (finding) Unknown Mother Problem (finding) Alive and well Payers Payer name Insurance type Covered libertarian ID Authoriza tion(s) No Information Social History [...] shoulder) ordered Referral Referred To: Rajesh Dunham [address] [place] [address] DR LAMB B [address] [id number] Ordered: Referrals: Allopathic & Osteopathic Physicians : Orthopaedic Surgery. Rajesh Dunham. Evaluate and treat ordered Referral Ordered: US EXAM, EXTREMITY Left shoulder ordered Referral Ordered: Neurology (related to Myalgia) ordered Referral Ordered: Otolaryngology (related to Myalgia) ordered Referral Ordered: Referrals: Neurology. Evaluate and treat ordered Referral Ordered: Referrals: Otolaryngology. Evaluate and treat ordered Referral Ordered: MRI BRAIN W/O & W/DYE ordered Referral Ordered: MRI THORACIC SPINE W/O DYE ordered Referral Ordered: Chavez Cuenca (related to Chest pain) ordered Referral Referred To: Chavez Cuenca [address] [place], [place] [id number] Ordered: Referrals: Chavez Cuenca. Evaluate and treat [...] Medications as instructed Relate d to Myalgia Increase physical activity Relat ed to Myalgia Weight management Related to Kylah lgia Special diet education Related t o Body mass index (BMI) 27.0-27.9, adult Avoid provocative fo ods: citrus, alcohol, coffee, chocolate, mints. Related to GERD w/o esophagitis Eat smaller meals, n o eating three hours prior to bedtime. Related to GERD w/o esophagitis Elevate head of bed prior to sle ep. Related to GERD w/o esophagitis Prescribed Activity and Exercise Education Related to Dietary Surveillance and Counseling Prescribed Diet Educ ation/Lifestyle Education Regarding Diet Related to Dietary Surveillance and Counseling Increase physical activity Relat ed to Generalized Anxiety Disorder Increase physical activity Relat ed to Encounter [...]
[2024-12-21 23:29] VITALS: BP 106/58; PULSE 76; RESP 15; O2SAT 100
--- NOTE | 2024-12-22 08:19 | ECG_ITS ---
Test Date: 2024-12-21 22:02:40 Measurements Intervals [place] Rate: 91 P: 57 FL: 136 QRS: -20 QRSD: 93 T: 28 QT: 373 QTc: 459 Interpretive Statements SINUS RHYTHM BORDERLINE ST-T WAVE ABNORMALITY- INFERIOR LEADS BASELINE ARTIFACT- I, III, AVR, AVL, AVF, V5-V6 BORDERLINE ECG Compared to ECG 12/21/2024 16:53:37 No significant changes Electronically Signed On 12-22-2024 09:59:35 BOOMSWING OPERATOR by Chavez Cuenca D.O.
== END 2024-12-21 23:29 | disposition home or self-care (01) ==
PROVIDERS: Physician Assistant; Emergency Provider Emergency Medicine; PCP Family Medicine
DX: R42 Dizziness and giddiness (principal); K21.9 Gastro-esophageal reflux disease without esophagitis; F90.9 Attention-deficit hyperactivity disorder, unspecified type; Z87.891 Personal history of nicotine dependence; R94.31 Abnormal electrocardiogram [ECG] [EKG]
CPT/HCPCS: 36415; 71046; 80053; 83735; 85025; 93005; 99283

== ENCOUNTER 2025-03-30 13:39 | Outpatient (CLI) | payer OTHER, SELFPAY ==
--- NOTE | ~2025-03-30 | XR_ITS ---
XR_[id number]_CR 03/30/2025 13:55 Indication: Cervicalgia Procedure: 3 view cervical spine Comparison: No prior studies for comparison. Findings: Vertebral body heights are maintained. No significant disc narrowing. No prevertebral soft tissue swelling. There is normal cervical alignment. No acute fracture, subluxation or dislocation. L otf apices are normal. Impression: 1: No significant abnormality of the cervical spine. Reviewed, dictated and finalized at location A. Impression: 1: No significant abnormality of the cervical spine.
--- OUTSIDE RECORDS SUMMARY | 2025-03-30 13:43 | XMS_ITS | Clinical Summary ---
Author Organization [address] Address [address] [place] [address] Care Team Providers Care Machine Packager Name Role Phone Lc Gonzalez MD Primary Care Provider Khadar Barraza NP Unavailable [phone] Allergies Active Allergy Reactions Criticality Noted Date Comments Iodinated Contrast Media Rash Medium 01/20/2025 Medications Vyvanse 60 mg capsule TAKE 1 CAPSULE BY MOUTH DAILY ONLY 6 OUT OF 7 DAYS PER WEEK 01/30/2024 Active Active Problems Problem Noted Date Diagnosed Date Encounter for general adult medical examination w/o abnormal findings 02/12/2019 Abnormal weight loss 02/12/2019 Acute bronchitis 02/12/2019 Lumbago 02/12/2019 Gastro-esophageal reflux disease without esophag itis 02/12/2019 Generalized anxiety disorder 02/12/2019 Headache 02/12/2019 Hoarseness 02/12/2019 Myalgia 02/12/2019 Other muscle spasm 02/12/2019 Pain in left shoulder 02/12/2019 Encounters Date Type Department Care Team Description 01/31/2025 7:45 PM CDT Office Visit [facility] at [address] [address] Salomón Ramirez NP Acute recurrent maxillary sinusitis (Primary Dx) 01/20/2025 3:00 PM ASSISTANT PROFESSOR NURSE EDUCATION Office Visit [facility] Medical [facility] at [address] [address] Zara Gonzalez NP Acute non-recurrent pansinusitis (Primary Dx) from Last 3 Months Medical History Medical [...] on file Legal Sex Male 12:33 PM ASSISTANT PROFESSOR NURSE EDUCATION Gender Identity Not on file Sexual Orientation Not on file Obstetrics History Last Filed Vital Signs Vital Sign Reading Time Taken Comments Blood Pressure 102/64 01/31/2025 7:11 PM CDT Pulse 75 01/31/2025 7:11 PM CDT Temperature 36.6 C (97.8 F) 01/31/2025 7:11 PM CDT Respiratory Rate 16 01/31/2025 7:11 PM CDT Oxygen Saturation 99% 01/31/2025 7:11 PM CDT Inhaled Oxygen Concentration - - Weight 64.9 kg (143 lb) 01/31/2025 7:11 PM CDT Height 160 cm (5' 3 ) 02/08/2024 4:56 PM CDT Body Mass Index 25.33 02/08/2024 4:56 PM CDT Plan of Treatment [...] on patient's age to complete this topic Insurance [facility] CHOICE PLUS [facility] CHOICE PLUS Care Teams Machine Packager Relationship Specialty Start Date End Date Lc Gonzalez MD [address] [phone] PCP - General Family Medicine 02/08/24 Khadar Barraza NP [address] [place] [address] Nurse Practitioner Family Practice 01/15/25
--- OUTSIDE RECORDS SUMMARY | 2025-03-30 13:43 | XMS_ITS | Referral Summary ---
Author Organization [address] Address [address] [place] [address] Care Team Providers Care Decorating Machine Operator Name Role Phone Lc Gonzalez MD Primary Care Provider Khadar Barraza SENIOR QUALITY CONTROL INSPECTOR Unavailable [phone] Encounters Date Type Department Care Team Description 01/31/2025 7:45 PM CDT Office Visit [facility] at [address] [address] Salomón Ramirez NP Acute recurrent maxillary sinusitis (Primary Dx) 01/20/2025 3:00 PM EARLY CHILDHOOD ASSISTANT Office Visit [facility] Care at [address] [address] Zara Gonazlez NP Acute non-recurrent pansinusitis (Primary Dx) from Last 3 Months Allergies Active Allergy Reactions Criticality Noted Date [...] on file Legal Sex Male 12:33 PM EARLY CHILDHOOD ASSISTANT Gender Identity Not on file Sexual Orientation [...] CDT Plan of Treatment Not on file Insurance [id number] CHOICE PLUS [facility] CHOICE PLUS Care Teams Decorating Machine Operator Relationship Specialty Start Date End Date Lc Gonzalez MD [address] [place] [id number] PCP - General Family Medicine 02/08/24 Khadar Barraza NP [address] [place] [address] Nurse Practitioner Family Practice 01/15/25
--- OUTSIDE RECORDS SUMMARY | 2025-03-30 13:44 | XMS_ITS | Continuity of Care Document ---
Author Organization [facility] Address [address] [facility] [place] [address] Phone Care Team Providers Care Passenger Locomotive Engineer Name Role Phone Garth Rodriguez MD [...] Diagnoses Date Provider Providers Copied on Encounter [facility], [address], [address], [place] tel:[phone] [facility] No Information 1 Michael Parisi [address], [place], [place], [address] , [place]. [phone] OFFICE/OUTPA TIENT VISIT, [facility], [address], [address], [place] tel:[phone] [facility] anxiety1 (chief complaint) ADD (chief complaint) fatigue1 (chief complaint) HLP (chief complaint) Attention deficitFatigueGener alized Anxiety DisorderHyperlipide miaFamily history of endo, nutritional and metabolic diseases 1 Michael Parisi [address], [place], [place], [address] , [place]. tel:[phone] OFFICE/OUTPA TIENT VISIT, [facility], [address], [address], [place] tel:[phone] [facility] anxiety1 (chief complaint) ADD (chief complaint) Attention deficitGeneralized Anxiety DisorderFatigue 1 Michael Parisi [address], [address] , [place]. tel:[phone] OFFICE/OUTPA TIENT VISIT, [facility], [address], [address], [place] tel:[phone] [facility] fatigue1 (chief complaint) ADD (chief complaint) anxiety1 (chief complaint) weight gain1 (chief complaint) Attention deficitGeneralized Anxiety DisorderAbnormal weight gainFatigue 1 Michael Parisi [address], [place], [place], [address] , [place]. [phone] PREV VISIT, EST, AGE 18-39 [facility], [address] [place], [address], [place] tel:[phone] [facility] physical (chief complaint) Encounter for general adult medical exam w abnormal findingsAttention deficitFamily history of endo, nutritional and metabolic diseases 1 Michael Liang. [address], [place], [place], [address] , [place]. tel:[phone] Referring Provider: Aida [address], [place], [place], [address]. tel:[phone] OFFICE/OUTPA TIENT VISIT, EST [facility], [address], [place], [place], [address], [place] tel:[phone] [facility] urinary frequency1 (chief complaint) ADD (chief complaint) Attention deficitUrinary urgency 9 Michael Liang. [address], [place], [place], [address] , [place]. tel:[phone] Referring Provider: Aida [address], [place], [place], [address]. tel:[phone] OFFICE/OUTPA TIENT VISIT, EST [facility], [address], [place], [place], [address], [place] tel:[phone] [facility] ADD1 (chief complaint) Attention deficit 9 Michael Liang. [address], [place], [place], [address] , [place]. tel:[phone] Referring Provider: Aida [address], [place], [place], [address]. tel:[phone] PREV VISIT, EST, AGE 18-39 [facility], [address], [place], [place], [address], [place] [phone] [facility] Physical (chief complaint) Encntr for general adult medical exam w/o abnormal findings 9 Michael Liang. [address], [place], [place], [address] , [place]. tel:[phone] Referring Provider: Aida [address], [place], [place], [address]. tel:[phone] OFFICE/OUTPA TIENT VISIT, [facility], [address], [place], [place], [address], [place] tel:[phone] [facility] anxiety1 (chief complaint) shoulder pain1 (chief complaint) Pain in left shoulderGeneralized Anxiety Disorder 8 Michael Liang. [address], [place], [place], [address] , [place]. tel:[phone] Referring Provider: [address], [place], [place], [address]. tel:[phone] OFFICE/OUTPA TIENT VISIT, [facility], [address], [place], [place], [address], [place] tel:[phone] [facility] twitching1 (chief complaint) anxiety1 (chief complaint) cough1 (chief complaint) FasciculationGenera lized Anxiety DisorderAcute bronchitis 8 Michael Liang. [address], [place], [place], [address] , [place]. tel:[phone] Referring Provider: [address], [place], [place], [address]. tel:[phone] OFFICE/OUTPA TIENT VISIT, [facility], [address], [place], [place], [address], [place] tel:[phone] [facility] GERD1 (chief complaint) anxiety1 (chief complaint) myalgia1 (chief complaint) weight 1 (chief complaint) MyalgiaAbnormal weight lossGeneralized Anxiety DisorderFasciculati on 8 Michael Liang. [address], [place], [place], [address] , [place]. tel:[phone] Referring Provider: [address], [place], [place], [address]. tel:[phone] OFFICE/OUTPA TIENT VISIT, [facility], [address], [place], [place], [address], [place] tel:[phone] [facility] muscle twitch1 (chief complaint) neck pain1 (chief complaint) midback pain1 (chief complaint) anxiety1 (chief complaint) MyalgiaOther muscle spasmGeneralized Anxiety DisorderHoarseness Jan- 8 Michael Liang. [address], [place], [place], [address] , [place]. tel:[phone] Referring Provider: Garth Rodriguez, [address], [place], [place], [address]. tel:[phone] OFFICE/OUTPA TIENT VISIT, [facility], [address], [place], [place], [address], [place] tel:[phone] [facility] GERD1 (chief complaint) back pain1 (chief complaint) muscle spasm1 (chief complaint) anxiety1 (chief complaint) GERD w/o esophagitisGenerali zed Anxiety DisorderLumbagoOthe r muscle spasm Jan- 8 Michael Liang. [address], [place], [place], [address] , [place]. tel:[phone] Referring Provider: A[address], [place], [place], [address]. tel:[phone] OFFICE/OUTPA TIENT VISIT, [facility], [address], [place], [place], [address], [place] tel:[phone] [facility] headache1 (chief complaint) GERD1 (chief complaint) chest pain1 (chief complaint) Generalized Anxiety DisorderGERD w/o esophagitisHeadache Chest pain 8 Michael Liang. [address], [place], [place], [address] , [place]. tel:[phone] Referring Provider: Aida [address], [place], [place], [address]. tel:[phone] PREV VISIT, NEW, AGE 18-39 [facility], [address], [place], [place], [address], [place] tel:[phone] [facility] Physical (chief complaint) Encounter for general adult medical exam w abnormal findingsGERD w/o esophagitisChest painLumbago 0 8 Michael Liang. [address] [facility] [address], [place], [place], [address] , [place]. tel:[phone] Referring Provider: Garth Rodriguez [address] [facility] [address], [place], [place], [address]. tel:[phone] Family History Family Member Type Diagnosis Age [...] shoulder) ordered Referral Referred To: Rajesh Dunham [address] [place] [address] DR LAMB B [address] [phone] Ordered: Referrals: Allopathic & Osteopathic Physicians : [...] [place] [address] [place], [place] [address] Ordered: Referrals: Chavez Cuenca. Evaluate and treat ordered History Of Present Illness Encounter Date Complaint History Of Prese nt Illness fatigue1 Pt has chronic f atigue. pt had negative sleep study. pt denies any sob. Pt doing better with lexapro and concerta HLP Pt has mildly el evated LDL. His total cholesterol is ok. anxiety Pt has chronic a nxiety and depression Pt doing ok with lexapro. 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 Patient feels scatterbrained. Patient feel poor focus and difficulty completing tasks. Patient states that Concerta is helping with symptoms. Patient feels more focused. Pt feels more energy. Patient denies any headache, dry mouth, headache, chest pain. Patient denies any appetite loss. ADD Patient has ADD. Patient has inattentive [...] notices mild improvement of symptoms with lexapro weight gain1 Pt has been gain ing weight Pt is sedentary and not very active ADD Patient has ADD. Patient has inattentive [...] pt wants to try anxiety meds again. fatigue1 Pt feels fatigue with poor focus and concentration and cloudy brain feeling. Pt denies any snoring .Pt denies any sob or chest pain physical Pt needs annual physical Pt has ADD, inattentive type Pt did well with concerta. Pt has not had it for more than one year. pt states that he is having difficulty with focus and concentration again, especially at work Pt wants to try concerta again. Pt denies any other complaints ADD Patient has ADD. Patient has inattentive [...] is not taking adderall for several days urinary frequency1 Pt has been f eeling [...] denies waking up at night with urination ADD1 Patient has ADD. Patient has inattentive [...] joint hypertrophy. Patient denies any other complaints. shoulder pain1 Pt c/o left shou lder [...] homicidal thought. pt denies any crying spells cough1 Pt c/o productiv e cough with [...] sore throat, dysphagia, Pt denies any fever. 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 pt denies any GI bleeding neck pain1 Pt c/o intermitt ent right side neck pain and when it occur for 4 weeks. s, he states that he canot speak due to the tightness feeling right side of neck. He feels throat tightening when his right side neck muscle pain and he feels that he feels that he has to speak less when it occurs. Pt denies any dysphagia. anxiety1 Pt has been feel ing depressed and anxious due to above. Pt denies any suicidal or homicidal thought. pt denies any cyring spells midback pain1 Pt has persisten t mid T spine pain and right paraspinal muscle pain near the scapular. Pt is seeing ortho and he had a injection to the scapular area but did not help. muscle twitch1 Pt c/o diffuse m uscle twitch all over body around bilateral thigh, upper back and shoulder area for 3 weeks ago. Pt states that he feels very uncomfortable due to twitching. anxiety1 Pt has chronic a nxiety. Pt denies any depression or any suicidal thought. Pt denies any crying spells. Pt takes xanax PRn. Pt is extremely concerned about his condition. Pt thinks that there is something really wrong with him now GERD1 Pt had EGD recen tly and was told everything is ok. Pt states that dexilant did help with GERd and he does not really has GERD anymore. muscle spasm1 Pt has muscle sp asm [...] Pt denies any recent travel or bedrest back pain1 pt states that h e [...] pain on right side of midspine area. headache1 Pt c/o sudden on set on [...] Education Related to Dietary Surveillance and Counseling Weight management Related to Enc ounter for general adult medical exam w abnormal findings Increase physical activity Relat ed to Encounter for general adult medical exam w abnormal findings Prescribed Activity and Exercise Education Related to Dietary Surveillance and Counseling Prescribed Diet Educ ation/Lifestyle Education Regarding Diet Related to Dietary Surveillance and Counseling Assessments Type Assessment Date No Information
== END 2025-03-30 13:40 | disposition home or self-care (01) ==
PROVIDERS: PCP Family Medicine; Visit Provider Family Medicine
DX: M54.2 Cervicalgia (principal)
CPT/HCPCS: 72040

== ENCOUNTER 2025-09-03 13:58 | Outpatient (CLI) | payer OTHER, SELFPAY ==
--- NOTE | ~2025-09-03 | US_ITS ---
EXAMINATION: US soft tissue head and neck, 09/03/2025 14:03 CDT HISTORY: M54.2 - Cervicalgia Comparison: None Technique: Maria-scale and color Doppler images were obtained FINDINGS: Correlating with the palpable area there are 2 subcutaneous complex foci measuring 8 x 2 x 7 mm and 4 x 2 x 5 mm, no abnormal flow. IMPRESSION: Nonspecific subcutaneous lesions possibly small lymph nodes but too small to characterize. Follow-up is suggested to assess stability or resolution Reviewed, dictated and finalized at location P. IMPRESSION: Nonspecific subcutaneous lesions possibly small lymph nodes but too small to characterize. Follow-up is suggested to assess stability or resolutio n
--- NOTE | ~2025-09-03 | XR_ITS ---
EXAMINATION: XR_ABD3V_CR, 09/03/2025 14:13 CDT HISTORY: R19.7 - Diarrhea, unspecified COMPARISON: No comparisons available. Technique: 3 view. Findings: Bowel gas pattern unremarkable. No obstruction. No free air. No abnormal calcifications No acute osseous abnormality. Impression: 1. No acute abnormality. Reviewed, dictated and finalized at location P. Impression: 1. No acute abnormality.
== END 2025-09-03 13:59 | disposition home or self-care (01) ==
LOC: MICIMG 14:02
PROVIDERS: PCP Family Medicine; Visit Provider Family Medicine
DX: M54.2 Cervicalgia (principal); R19.7 Diarrhea, unspecified
CPT/HCPCS: 74021; 76536

== ENCOUNTER 2025-10-02 12:09 | Outpatient (CLI) | payer OTHER, SELFPAY ==
--- NOTE | ~2025-10-02 | CT_ITS ---
EXAMINATION: CT brain & sinus wo con, 10/02/2025 12:15 DEPUTY CONTROLLER HISTORY: Headaches x 1 year, left side COMPARISON: No comparisons available. Technique: Axial images obtained of the brain and sinuses without contrast. One or more of the following dose reduction techniques were used: automated exposure control, adjustment of the mA and/or kV according to patient size, use of iterative reconstruction technique. Findings: CT brain: No acute infarct or parenchymal hemorrhage. No abnormal mass or mass effect. No midline shift. No extra-axial fluid collections. No hydrocephalus. Mastoid air cells unremarkable. CT sinuses: The nasal bones are intact. The anterior maxillary sinus valverde and zygomatic arches are intact. Minimal maxillary sinusitis. Remaining sinuses are unremarkable. Orbital floors and medial orbits are intact. Ostiomeatal complexes patent. Nasal septum deviated to the left. Minimal thickening of the turbinates with no significant narrowing of the nasal cavities. The remaining sinuses are unremarkable. IMPRESSION: 1. No intracranial hemorrhage or infarct. 2. No acute fracture. Minimal sinusitis. Reviewed, dictated and finalized at location P. TY CONTROLLER
--- NOTE | ~2025-10-02 | CT_ITS ---
EXAMINATION: CT soft tissue neck w con DATE: 10/02/2025 12:43 INDICATION: Chronic lumps at the neck with recently worsening associated pain. TECHNIQUE: Computed tomography (CT) of the neck was performed with 75 mL Omnipaque-350 intravenous contrast. Automated exposure control and iterative reconstruction technique were employed. The dose-length product was 346.76 mGy-cm. COMPARISON: None FINDINGS: Orbits are normal. Mild mucosal thickening the bilateral maxillary sinuses. Mastoid air cells and middle ear cavities are clear. Submandibular and parotid glands are normal and symmetric. Thyroid gland is unremarkable. There are scattered normal-sized lymph nodes in the neck, no lymphadenopathy. No masses identified. The vasculature is patent and normal in caliber. Airway is unremarkable. Superior mediastinum is unremarkable. Mild dependent atelectasis in the visualized upper lungs. Cervical spine is unremarkable. IMPRESSION: 1. No pathologically enlarged lymphadenopathy or other abnormal masses or fluid collections identified at the neck. Reviewed, dictated and finalized at location A. GUN SHELL REPRINTING UNIT OPERATOR
== END 2025-10-02 12:10 | disposition home or self-care (01) ==
PROVIDERS: PCP Family Medicine; Visit Provider Nurse Practitioner Family
DX: R93.89 Abnormal findings on diagnostic imaging of other specified body structures (principal); R51.9 Headache, unspecified
CPT/HCPCS: 70450; 70486; 70491; Q9967

== ENCOUNTER 2025-11-01 08:56 | Outpatient (CLI) | payer OTHER, SELFPAY ==
--- NOTE | ~2025-11-01 | US_ITS ---
EXAM/PROCEDURE: US soft tissue head and neck HISTORY: R93.89 - Abnormal findings on diagnostic imaging of other... COMPARISON: None available. TECHNIQUE: Directed examination of left posterior neck in area of palpable concern FINDINGS: 4 areas palpated by patient are examined. The 4 x 2 x 4 mm lesion is seen is the only clearly measured lesion in the posterior left region of the neck and left supraclavicular region. IMPRESSION: Probable benign lymph nodes. If there is concern for occult mass or malignancy, correlation with soft tissue neck CT recommended for optimal evaluation. Reviewed, dictated and finalized at location A. RATIONS WORKROOM CLERK
== END 2025-11-01 08:57 | disposition home or self-care (01) ==
LOC: MICIMG 08:56
PROVIDERS: PCP Family Medicine; Visit Provider Nurse Practitioner Family
DX: R93.89 Abnormal findings on diagnostic imaging of other specified body structures (principal)
CPT/HCPCS: 76536